=== PATIENT | female | born 1950 | race Caucasian/White ===

== ENCOUNTER 2017-11-10 20:26 | Emergency (ER) | payer BC ==
[2017-11-10] MEDS ORDERED: Morphine 2 MG/ML Syringe IVPUSH ONE (22:01)
[2017-11-10] MEDS ORDERED: Sodium Chloride 0.9% 10 ML Syringe FLUSH PRN (22:01)
[2017-11-10] MEDS ORDERED: Sodium Chloride 0.9% 2.5 ML Syringe FLUSH PRN (22:01)
[2017-11-10] MEDS ORDERED: Sodium Chloride 0.9% 1,000 ML IV ONE (22:01)
[2017-11-10] MEDS ORDERED: Ondansetron 4 MG/2 ML SDV IVPUSH ONE (22:01)
--- NOTE | 2017-11-10 22:04 | EDM.PDOC ---
ED HPI GENERAL MEDICAL PROBLEM - General Chief Complaint: Abdominal Pain Stated Complaint: ABDOMINAL PAIN Time Seen by Provider: 11/10/17 21:44 - History of Present Illness INITIAL COMMENTS - FREE TEXT/NARRATIVE: HISTORY AND PHYSICAL: History of present illness: The patient is a 67-year-old female with a history of hypertension and non- insulin dependent diabetes and hypercholesterol and who has had a total hysterectomy but no other abdominal surgeries and presents with episodic right- sided abdominal pain that has been ongoing for the last 1 week. Patient says that she had some spasms of the pain since the beginning of the year, 10-11 days ago and she has had loose stools/diarrhea also since that time. She was placed on amoxicillin for a dental infection but she was placed on that after the abdominal pain and diarrhea started. She has not had any recent travel. She says the diarrhea is not copious but it is watery and it is not black or bloody. She has not been vomiting with the symptoms and has not had a fever or flank pain. She has no urinary complaints. She says that she eats food and about 30 minutes after she eats she gets the cramping which will intensify and then she will have the diarrhea. She says the pain got worse tonight even without eating and she is concerned. She is not taking anything over-the- counter specifically for the pain. She has no IBS or GI history Review of systems: As per history of present illness and below otherwise all systems reviewed and negative. Past medical history: As per history of present illness and as reviewed below otherwise noncontributory. Surgical history: As per history of present illness and as reviewed below otherwise noncontributory. Social history: No reported history of drug or alcohol abuse. Family history: As per history of present illness and as reviewed below otherwise noncontributory. Physical exam: Gen.: Well-developed well-nourished female who is mildly overweight and nontoxic HEENT: Atraumatic, normocephalic, negative for conjunctival pallor or scleral icterus, mucous membranes moist, throat clear, neck supple, nontender, trachea midline. Lungs: Clear to auscultation, breath sounds equal bilaterally, chest nontender. Heart: S1S2, regular, negative for clicks, rubs, or JVD. Abdomen: Soft, nondistended, mildly tender in the right lower and right mid abdomen on deep palpation but there is no rebound guarding. There is tympany on percussion of the right side of the abdomen bowel sounds are normoactive. Negative for masses or hepatosplenomegaly. Negative for costovertebral tenderness. Pelvis: Stable nontender. Genitourinary: Deferred. Rectal: Deferred. Extremities: Atraumatic, negative for cords or calf pain. Neurovascular unremarkable. Neuro: Awake, alert, oriented. Cranial nerves II through XII unremarkable. Cerebellum unremarkable. Motor and sensory unremarkable throughout. Exam nonfocal. Diagnostics: CBC CMP amylase lipase UA, urine culture if indicated, CT scan of the abdomen and pelvis Therapeutics: IV, IV fluids, morphine Zofran and Bentyl I discussed with the patient and at bedside all testing results including the CAT scan. At this point there is no evident explanation for the patient's discomfort and diarrhea. Since she has been here she has not produced a stool sample but we will give her equipment to collect a stool at home and to bring it to outpatient lab and I will write a prescription for studies to send results to her provider in the clinic Dr. Brunner. I will give her Bentyl from [employer] Impression: Abdominal pain and diarrhea Definitive disposition and diagnosis as appropriate pending reevaluation and review of above. Abdomen Pain Score (Numeric/FACES): 6 - Related Data Allergies Allergy/AdvReac Type Severity Reaction Status Date / Time codeine Allergy Cannot Verified 11/10/17 21:[address] CONTRAST DYE Allergy Difficulty Uncoded 11/10/17 21:39 Breathing Home Meds: Home Meds Aspirin [Stephen Chewable Aspirin] 81 mg PO DAILY 04/23/14 [History] Levothyroxine 1 tab PO DAILY 04/23/14 [History] Losartan [Cozaar] 1 tab PO DAILY 04/23/14 [History] atorvaSTATin [Lipitor] 1 tab PO BEDTIME 04/23/14 [History] metFORMIN [Glucophage XR] 500 mg PO BIDM 04/23/14 [History] Empagliflozin/Linagliptin [Glyxambi 10 mg-5 mg Tablet] 1 tab PO DAILY 09/20/15 [ History] Past Medical History HEENT History: Reports: None Cardiovascular History: Reports: High Cholesterol, Hypertension Respiratory History: Reports: None Gastrointestinal History: Reports: None Genitourinary History: Reports: None [employer] History: Reports: None Musculoskeletal History: Reports: None Neurological History: Reports: None Psychiatric History: Reports: None Endocrine/Metabolic History: Reports: Diabetes, Type II Hematologic History: Reports: None Immunologic History: Reports: None Oncologic (Cancer) History: Reports: None Dermatologic History: Reports: None - Infectious Disease History Infectious Disease History: Reports: Chicken Pox, Measles, Mumps - Past Surgical History Head Surgeries/Procedures: Reports: None HEENT Surgical History: Reports: None Social & Family History - Family History Family Medical History: Noncontributory - Tobacco Use Smoking Status *Q: Never Smoker - Caffeine Use Caffeine Use: Reports: Soda - Alcohol Use Number of Drinks Per Day: 0 - Recreational Drug Use Recreational Drug Use: No Drug Use in Last 12 Months: No ED ROS GENERAL - Review of Systems Review Of Systems: ROS reveals no pertinent complaints other than HPI. ED EXAM, GENERAL - Physical Exam Exam: See Below (see dictation) Course - Vital Signs Last Recorded V/S: Last Vital Signs Temp 36.8 C 11/10/17 21:41 Pulse 89 11/10/17 21:41 Resp 18 11/10/17 22:37 BP 133/71 11/10/17 22:37 Pulse Ox 97 11/10/17 21:41 - Orders/Labs/Meds Orders: Active Orders 24 hr Category Date Time Status Communication Order [RC] STAT Care 11/10/17 22:04 Active Communication Order [RC] STAT Care 11/11/17 00:10 Ordered Abdomen Pelvis w Cont [CT] Stat Exams 11/10/17 22:01 Stop Req Abdomen Pelvis wo Cont [CT] Stat Exams 11/10/17 23:17 Taken Sodium Chloride 0.9% [Saline Flush] Med 11/10/17 22:01 Active 10 ml FLUSH ASDIRECTED PRN Sodium Chloride 0.9% [Saline Flush] Med 11/10/17 22:01 Active 2.5 ml FLUSH ASDIRECTED PRN Saline Lock Insert [OM.PC] Stat Oth 11/10/17 22:00 Ordered Medication Orders Sodium Chloride (Saline Flush) 10 ml FLUSH ASDIRECTED PRN PRN Reason: Keep Vein Open Sodium Chloride (Saline Flush) 2.5 ml FLUSH ASDIRECTED PRN PRN Reason: Keep Vein Open Labs: Laboratory Tests 11/10/17 11/10/17 11/10/17 Range/Units 22:20 22:20 22:30 WBC 6.44 (4.0-11.0) K/uL RBC 5.27 (4.30-5.90) M/uL Hgb 16.0 (12.0-16.0) g/dL Hct 46.1 H (36.0-46.0) % MCV 87.5 (80.0-98.0) fL MCH 30.4 (27.0-32.0) pg MCHC 34.7 (31.0-37.0) g/dL RDW Std Deviation 42.5 (28.0-62.0) fl RDW Coeff of Masoud 13 (11.0-15.0) % Plt Count 310 (150-400) K/uL MPV 9.30 (7.40-12.00) fL Neut % (Auto) 68.3 (48.0-80.0) % Lymph % (Auto) 20.8 (16.0-40.0) % Banner % (Auto) 9.6 (0.0-15.0) % Eos % (Auto) 1.1 (0.0-7.0) % Baso % (Auto) 0.2 (0.0-1.5) % Neut # (Auto) 4.4 (1.4-5.7) K/uL Lymph # (Auto) 1.3 (0.6-2.4) K/uL Banner # (Auto) 0.6 (0.0-0.8) K/uL Eos # (Auto) 0.1 (0.0-0.7) K/uL Baso # (Auto) 0.0 (0.0-0.1) K/uL Nucleated RBC % 0.0 /100WBC Nucleated RBCs # 0 K/uL Sodium 139 (136-146) mmol/L Potassium 4.0 (3.5-5.1) mmol/L Chloride 106 (98-110) mmol/L Carbon Dioxide 19 L (21-31) mmol/L BUN 19 (6.0-23.0) mg/dL Creatinine 0.8 (0.6-1.5) mg/dL Est Cr Clr Drug Dosing 55.45 mL/min Estimated GFR (MDRD) > 60.0 ml/min Glucose 124 H (60-110) mg/dL Calcium 9.5 (8.8-10.8) mg/dL Total Bilirubin 0.8 (0.1-1.5) mg/dL AST 19 (5-40) IU/L ALT 25 (8-54) IU/L Alkaline Phosphatase 76 (40-150) Total Protein 6.9 (6.0-8.0) g/dL Albumin 4.1 (3.4-4.8) g/dL Globulin 2.8 (2.0-3.5) g/dL Albumin/Globulin Ratio 1.5 (1.3-2.8) Amylase 57 (10-90) U/L Lipase 60 (7-80) U/L Urine Color YELLOW Urine Appearance CLEAR Urine pH 5.5 (5.0-8.0) Ur Specific [place] 1.025 (1.001-1.035) Urine Protein NEGATIVE (NEGATIVE) mg/dL Urine Glucose (UA) >=1000 (NEGATIVE) mg/dL Urine Ketones NEGATIVE (NEGATIVE) mg/dL Urine Occult Blood NEGATIVE (NEGATIVE) Urine Nitrite NEGATIVE (NEGATIVE) Urine Bilirubin NEGATIVE (NEGATIVE) Urine Urobilinogen 0.2 (<2.0) EU/dL Ur Leukocyte Esterase NEGATIVE (NEGATIVE) Urine RBC 0-2 (0-2/HPF) Urine WBC 0-2 (0-5/HPF) Ur Epithelial Cells OCCASIONAL (NONE-FEW) Urine Bacteria FEW (NEGATIVE) Meds: Medications Generic Name Dose Route Start Last Admin Trade Name Hayes PRN Reason Stop Dose Admin Sodium Chloride 10 ml 11/10/17 22:01 Saline Flush FLUSH ASDIRECTED PRN Keep Vein Open Sodium Chloride 2.5 ml 11/10/17 22:01 Saline Flush FLUSH ASDIRECTED PRN Keep Vein Open Discontinued Medications Generic Name Dose Route Start Last Admin Trade Name Freq PRN Reason Stop Dose Admin Dicyclomine HCl 20 mg 11/11/17 00:09 Bentyl PO 11/11/17 00:10 ONETIME ONE Sodium Chloride 1,000 mls @ 999 mls/hr 11/10/17 22:01 11/10/17 22:31 Normal Saline IV 11/10/17 23:01 999 mls/hr STAT ONE Administration Morphine Sulfate 4 mg 11/10/17 22:01 11/10/17 22:32 Morphine IVPUSH 11/10/17 22:02 4 mg ONETIME ONE Administration Ondansetron HCl 4 mg 11/10/17 22:01 11/10/17 22:31 Zofran IVPUSH 11/10/17 22:02 4 mg ONETIME ONE Administration Departure - Departure Time of Disposition: 00:11 Disposition: Home, Self-Care 01 Condition: Good Clinical Impression: Abdominal pain Qualifiers: Abdominal location: right lower quadrant Qualified Code(s): R10.31 - Right lower quadrant pain Diarrhea Qualifiers: Diarrhea type: unspecified type Qualified Code(s): R19.7 - Diarrhea, unspecified - Discharge Information Referrals: hTa Brunner MD [Primary Care Provider] - Forms: ED Department Discharge Additional Instructions: The following information is given to patients seen in the emergency department who are being discharged to home. This information is to outline your options for follow-up care. We provide all patients seen in our emergency department with a follow-up referral. The need for follow-up, as well as the timing and circumstances, are variable depending upon the specifics of your emergency department visit. If you don't have a primary care physician on staff, we will provide you with a referral. We always advise you to contact your personal physician following an emergency department visit to inform them of the circumstance of the visit and for follow-up with them and/or the need for any referrals to a consulting specialist. The emergency department will also refer you to a specialist when appropriate. This referral assures that you have the opportunity for followup care with a specialist. All of these measure are taken in an effort to provide you with optimal care, which includes your followup. Under all circumstances we always encourage you to contact your private physician who remains a resource for coordinating your care. When calling for followup care, please make the office aware that this follow-up is from your recent emergency room visit. If for any reason you are refused follow-up, please contact the [facility] emergency department at and ask to speak to the emergency department charge nurse. [facility] Primary care- Internal Medicine and Family [address] [address] Call your provider in the next few days for follow-up appointment and please collect a stool sample using the tools you have been given and bring it back when you can for outpatient study. Please push hydration rest and start journaling your food intake and your tools to further assist her provider on further care. Use Bentyl you have been given [facility] [employer] Meds for cramping and pain. - My Orders Last 24 Hours: My Active Orders 11/10/17 22:00 Saline Lock Insert [OM.PC] Stat 11/10/17 22:01 Abdomen Pelvis w Cont [CT] Stat Sodium Chloride 0.9% [Saline Flush] 10 ml FLUSH ASDIRECTED PRN Sodium Chloride 0.9% [Saline Flush] 2.5 ml FLUSH ASDIRECTED PRN 11/10/17 22:04 Communication Order [RC] STAT 11/10/17 23:17 Abdomen Pelvis wo Cont [CT] Stat 11/11/17 00:10 Communication Order [RC] STAT - Assessment/Plan Last 24 Hours: My Active Orders 11/10/17 22:00 Saline Lock Insert [OM.PC] Stat 11/10/17 22:01 Abdomen Pelvis w Cont [CT] Stat Sodium Chloride 0.9% [Saline Flush] 10 ml FLUSH ASDIRECTED PRN Sodium Chloride 0.9% [Saline Flush] 2.5 ml FLUSH ASDIRECTED PRN 11/10/17 22:04 Communication Order [RC] STAT 11/10/17 23:17 Abdomen Pelvis wo Cont [CT] Stat 11/11/17 00:10 Communication Order [RC] STAT
[2017-11-10 22:47] LABS: CHLORIDE,CL 106 mmol/L (98-110); SODIUM,NA 139 mmol/L (136-146)
[2017-11-11] MEDS ORDERED: Dicyclomine 10 MG Cap PO ONE (00:09)
[2017-11-11 00:17] VITALS: BP 110/72
--- NOTE | 2017-11-12 18:44 | CT ---
EXAM DATE: 11/10/17 PATIENT'S AGE: 67 Patient: KYLAH LUIS Facility: [place], [place] Site . Site : 1950 Study: CT Abdomen/Pelvis [id number]/[id number] 11:39:34 PM Ordering Physician: Valentin Whittington Final Report: TECHNIQUE: Noncontrast CT abdomen and pelvis. INDICATION: Abdominal pain. Comparison: 07/27/[address] FINDINGS: Liver appears fatty. Otherwise the liver, spleen, pancreas, kidneys and adrenal glands appear normal. No bowel obstruction. Hysterectomy. No adenopathy, free air or free fluid. Gallbladder and biliary tree are unremarkable. Several tiny nodules in the lung bases are unchanged from prior exam and should be benign. IMPRESSION: No acute findings. Hepatic steatosis. Please note that all CT scans performed at this facility use dose modulation, iterative reconstruction, and/or weight based dosing when appropriate to reduce radiation dose to as low as reasonably achievable. Dictated by Winston Pickard MD @ 11/11/2017 12:04:35 AM Dictated by: Winston Pickard MD @ 11/11/2017 00:04:40 (Electronic Signature) Report Signed by Proxy. [facility]
== END 2017-11-11 00:30 | disposition home or self-care (01) ==
LOC: MW.ED 20:26
DX: R10.31 Right lower quadrant pain (principal); R19.7 Diarrhea, unspecified; I10 Essential (primary) hypertension; E78.00 Pure hypercholesterolemia, unspecified; E11.9 Type 2 diabetes mellitus without complications; Z79.84 Long term (current) use of oral hypoglycemic drugs; Z79.82 Long term (current) use of aspirin; Z79.899 Other long term (current) drug therapy; Z88.5 Allergy status to narcotic agent; Z91.041 Radiographic dye allergy status
CPT/HCPCS: 36415; 74176; 80053; 81001; 82150; 83690; 85025; 96361; 96374; 96375; 99284; A9270; J2270; J2405; J7040

== ENCOUNTER 2020-07-24 16:55 | Emergency (ER) | payer BC, OTHER ==
--- NOTE | 2020-07-24 17:10 | EDM.PDOC ---
ED HPI GENERAL MEDICAL PROBLEM - General Chief Complaint: Respiratory Problem Stated Complaint: positive covid Time Seen by Provider: 07/24/20 17:07 Source of Information: Reports: Patient History Limitations: Reports: No Limitations - History of Present Illness INITIAL COMMENTS - FREE TEXT/NARRATIVE: HISTORY AND PHYSICAL: History of present illness: Patient is a 70-year-old female who presents to the emergency room with complaints of right ear pain, cough, body aches and shortness of breath. She states approximately 8 days ago she tested positive for COVID-19, her also was positive for COVID-19. She is concerned she may have a "lung infection" as her coughing has gotten worse. She voices concern as her who was asymptomatic had received antibiotics and steroids and she has not had any prescriptions for her diagnoses. Patient denies any fever, chills, headache, change in vision, syncope or near syncope. Denies any chest pain, back pain, abdominal pain, nausea, vomiting, diarrhea, constipation or dysuria. Patient has been eating and drinking appropriately. Review of systems: As per history of present illness and below otherwise all systems reviewed and negative. Past medical history: As per history of present illness and as reviewed below otherwise noncontributory. Surgical history: As per history of present illness and as reviewed below otherwise noncontributory. Social history: See social history for further information Family history: As per history of present illness and as reviewed below otherwise noncontributory. Physical exam: General: Well developed and well nourished 70-year-old female. Alert and orientated x 3. Nontoxic in appearance and in no acute distress. Vital signs are stable and have been reviewed by me. Nursing notes were reviewed. HEENT: Atraumatic, normocephalic, pupils equal and reactive bilaterally, negative for conjunctival pallor or scleral icterus, mucous membranes moist, TMs normal bilaterally, throat clear, neck supple, nontender, trachea midline. No drooling or trismus noted. No meningeal signs. No hot potato voice noted. Lungs: Fine expiratory wheezing noted to the left posterior base otherwise clear to auscultation, breath sounds equal bilaterally, chest nontender. Normal work of breathing, no accessory muscles used. Heart: S1S2, regular rate and rhythm without overt murmur Abdomen: Soft, nondistended, nontender. Skin: Intact, warm, dry. No lesions or rashes noted. Hematologic: No petechiae or purpra. Mucosa appropriate color and normal nail bed color and refill. Extremities: Atraumatic, moves all extremities per self without difficulty or deficits, negative for cords or calf pain. Lower extremities are warm to touch bilaterally. Neurovascular unremarkable. Neuro: Awake, alert, oriented. Cranial nerves II through XII unremarkable. Cerebellum unremarkable. Motor and sensory unremarkable throughout. Exam nonfocal. Psychiatric: Mood and affect are appropriate. Normal thought process. Answering questions appropriately. Notes: EKG shows a normal sinus rhythm with no acute findings. Lab work is unremarkable. X-ray shows a small density within the left midlung presumedly representing a small area of pneumonia. Given the patient's history of COVID 19 and her concerns today I will treat her with a Z-Ayo. I have spoken with the patient/caregiver and discussed today's findings, in addition to providing specific details for plan of care. Reassessment at the time of disposition demonstrates that the patient is in no acute distress. The patient has remained stable throughout the entire ED visit and is without objective evidence for acute process requiring urgent intervention or hospitalization. The patient is stable for discharge, counseling was provided and we discussed in great detail signs and symptoms that would prompt them to return to the Emergency Department. Medication, follow up and supportive care measures were reviewed and discussed. Voices understanding and is agreeable to plan of care. Denies any further questions or concerns at this time. Diagnostics: CBC, CMP, EKG, chest x-ray Therapeutics: K-Dur Prescription: Z-Ayo Impression: COVID-19 related pneumonia Hypokalemia Plan: 1. Your potassium is slightly low and your chest x-ray shows a small area which is suspicious for an early pneumonia. Your vital signs and oxygen saturation are well enough that you were able to monitor your symptoms at home. Continue to monitor for trouble breathing, new confusion or inability to arouse, bluish lips or face or any of the other symptoms we discussed -if this occurs please return to the emergency room. 2. Please self quarantine as you have been directed. 3. Take the medications as we prescribed as discussed. You can take NyQuil during the evening to help get a restful night sleep. 4. You may alternate Tylenol and ibuprofen as needed for pain and fever management. 5. The [place] COVID 19 Hotline phone number , They are open Sunday - Sunday 7am - 7pm. Follow up with your primary care provider for re-evaluation and re-testing after the 2 week quarantine and discuss when you should be seen. Definitive disposition and diagnosis as appropriate pending reevaluation and review of above. stomach/back/thighs Pain Score (Numeric/FACES): 5 - Related Data Allergies Allergy/AdvReac Type Severity Reaction Status Date / Time codeine Allergy Cannot Verified 07/24/20 17:[address] CONTRAST DYE Allergy Difficulty Uncoded 07/24/20 17:02 Breathing Home Meds: Home Meds Aspirin [Stephen Chewable Aspirin] 81 mg PO DAILY 04/23/14 [History] Levothyroxine 1 tab PO DAILY 04/23/14 [History] Losartan [Cozaar] 1 tab PO DAILY 04/23/14 [History] atorvaSTATin [Lipitor] 1 tab PO BEDTIME 04/23/14 [History] metFORMIN [Glucophage XR] 500 mg PO BIDM 04/23/14 [History] Empagliflozin/Linagliptin [Glyxambi 10 mg-5 mg Tablet] 1 tab PO DAILY 09/20/15 [History] Azithromycin [Zithromax] 1 dose PO DAILY 5 Days #6 tab 07/24/20 [Rx] Potassium Chloride 40 meq PO DAILY 5 Days #10 tab.er.prt 07/24/20 [Rx] Past Medical History HEENT History: Reports: None Cardiovascular History: Reports: High Cholesterol, Hypertension Respiratory History: Reports: None Gastrointestinal History: Reports: None Genitourinary History: Reports: None 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 Musculoskeletal History: Reports: None Neurological History: Reports: None Psychiatric History: Reports: None Endocrine/Metabolic History: Reports: Diabetes, Type II Hematologic History: Reports: None Immunologic History: Reports: None Oncologic (Cancer) History: Reports: None Dermatologic History: Reports: None - Infectious Disease History Infectious Disease History: Reports: Chicken Pox, Measles, Mumps - Past Surgical History Head Surgeries/Procedures: Reports: None HEENT Surgical History: Reports: None Social & Family History - Family History Family Medical History: Noncontributory - Tobacco Use Smoking Status *Q: Never Smoker - Caffeine Use Caffeine Use: Reports: None - Recreational Drug Use Recreational Drug Use: No ED ROS GENERAL - Review of Systems Review Of Systems: Comprehensive ROS is negative, except as noted in HPI. ED EXAM, GENERAL - Physical Exam Exam: See Below (See dictation) Course - Vital Signs Last Recorded V/S: Last Vital Signs Temp 97.8 F 07/24/20 17:02 Pulse 86 07/24/20 17:02 Resp 16 07/24/20 17:02 BP 117/72 07/24/20 17:02 Pulse Ox 95 07/24/20 17:02 - Orders/Labs/Meds Orders: Active Orders 24 hr Category Date Time Status EKG Documentation Completion [RC] STAT Care 07/24/20 17:16 Active Labs: Laboratory Tests 07/24/20 07/24/20 Range/Units 17:43 17:43 WBC 2.79 L (4.0-11.0) K/uL RBC 4.56 (4.30-5.90) M/uL Hgb 13.4 (12.0-16.0) g/dL Hct 40.3 (36.0-46.0) % MCV 88.4 (80.0-98.0) fL MCH 29.4 (27.0-32.0) pg MCHC 33.3 (31.0-37.0) g/dL RDW Std Deviation 42.5 (28.0-62.0) fl RDW Coeff of Masoud 13 (11.0-15.0) % Plt Count 203 (150-400) K/uL MPV 9.20 (7.40-12.00) fL Neut % (Auto) 47.0 L (48.0-80.0) % Lymph % (Auto) 40.5 H (16.0-40.0) % Burt % (Auto) 11.1 (0.0-15.0) % Eos % (Auto) 1.4 (0.0-7.0) % Baso % (Auto) 0.0 (0.0-1.5) % Neut # (Auto) 1.3 L (1.4-5.7) K/uL Lymph # (Auto) 1.1 (0.6-2.4) K/uL Burt # (Auto) 0.3 (0.0-0.8) K/uL Eos # (Auto) 0.0 (0.0-0.7) K/uL Baso # (Auto) 0.0 (0.0-0.1) K/uL Nucleated RBC % 0.0 /100WBC Nucleated RBCs # 0 K/uL Sodium 141 (136-145) mmol/L Potassium 3.0 L (3.5-5.1) mmol/L Chloride 105 (98-107) mmol/L Carbon Dioxide 25.7 (21.0-32.0) mmol/L BUN 14 (7.0-18.0) mg/dL Creatinine 0.8 (0.6-1.0) mg/dL Est Cr Clr Drug Dosing 55.68 mL/min Estimated GFR (MDRD) > 60.0 ml/min Glucose 155 H (74-106) mg/dL Calcium 8.0 L (8.5-10.1) mg/dL Total Bilirubin 0.4 (0.2-1.0) mg/dL AST 23 (15-37) IU/L ALT 47 (14-63) IU/L Alkaline Phosphatase 72 (46-116) U/L Total Protein 6.5 (6.4-8.2) g/dL Albumin 3.4 (3.4-5.0) g/dL Globulin 3.1 (2.6-4.0) g/dL Albumin/Globulin Ratio 1.1 (0.9-1.6) Meds: Medications Discontinued Medications Generic Name Dose Route Start Last Admin Trade Name Freq PRN Reason Stop Dose Admin Potassium Chloride 40 meq 07/24/20 18:29 07/24/20 18:45 Klor-Con M20 PO 07/24/20 18:30 40 meq ONETIME ONE Administration Departure - Departure Time of Disposition: 18:10 Disposition: Home, Self-Care 01 Clinical Impression: Pneumonia due to COVID-19 virus, Hypokalemia - Discharge Information Prescriptions: Potassium Chloride 40 meq PO DAILY 5 Days #10 tab.er.prt Azithromycin [Zithromax] 1 dose PO DAILY 5 Days #6 tab Instructions: COVID-19 Frequently Asked Questions Referrals: PCP,None [Primary Care Provider] - Forms: ED Department Discharge Additional Instructions: The following information is given to patients seen in the emergency department who are being discharged to home. This information is to outline your options for follow-up care. We provide all patients seen in our emergency department with a follow-up referral. The need for follow-up, as well as the timing and circumstances, are variable depending upon the specifics of your emergency department visit. If you don't have a primary care physician on staff, we will provide you with a referral. We always advise you to contact your personal physician following an emergency department visit to inform them of the circumstance of the visit and for follow-up with them and/or the need for any referrals to a consulting specialist. The emergency department will also refer you to a specialist when appropriate. This referral assures that you have the opportunity for follow-up care with a specialist. All of these measure are taken in an effort to provide you with optimal care, which includes your follow-up. Under all circumstances we always encourage you to contact your private physician who remains a resource for coordinating your care. When calling for follow-up care, please make the office aware that this follow-up is from your recent emergency room visit. If for any reason you are refused follow-up, please contact the [facility] Emergency Department at and asked to speak to the emergency department charge nurse. [facility] [address] [place] [address] [place] [address] Thank you for choosing the [facility] emergency department in [place] for your medical needs today. It was a pleasure caring for you. Today you were seen in the emergency department for COVID-19 symptoms. 1. Your potassium is slightly low and your chest x-ray shows a small area which is suspicious for an early pneumonia. Your vital signs and oxygen saturation are well enough that you were able to monitor your symptoms at home. Continue to monitor for trouble breathing, new confusion or inability to arouse, bluish lips or face or any of the other symptoms we discussed -if this occurs please return to the emergency room. 2. Please self quarantine as you have been directed. 3. Take the medications as we prescribed as discussed. You can take NyQuil during the evening to help get a restful night sleep. 4. You may alternate Tylenol and ibuprofen as needed for pain and fever management. 5. The [employer] Hotline phone number , They are open Sunday - Sunday 7am - 7pm. Follow up with your primary care provider for re-evaluation and re-testing after the 2 week quarantine and discuss when you should be seen. Sepsis Event Note (ED) - Evaluation Sepsis Screening Result: No Definite Risk - Focused Exam Vital Signs: Vital Signs Temp Pulse Resp BP Pulse Ox 07/24/20 17:02 97.8 F 86 16 117/72 95 - My Orders Last 24 Hours: My Active Orders 07/24/20 17:16 EKG Documentation Completion [RC] STAT - Assessment/Plan Last 24 Hours: My Active Orders 07/24/20 17:16 EKG Documentation Completion [RC] STAT
--- NOTE | 2020-07-24 17:40 | CR ---
Chest: Portable view of the chest was obtained. Comparison: No prior chest imaging is available. Heart size and mediastinum are normal. Small density is noted within left mid lung. Lungs otherwise are clear. Bony structures are grossly intact. Impression: 1. Small density within the left mid lung presumably representing small area of pneumonia. 2. No additional abnormality is seen on portable chest x-ray. Diagnostic code #3 This report was dictated in MDT
[2020-07-24 18:12] LABS: BLOOD UREA NITROGEN,BUN 14 mg/dL (7.0-18.0); CARBON DIOXIDE,CO2 25.7 mmol/L (21.0-32.0); CHLORIDE,CL 105 mmol/L (98-107); GLUCOSE RANDOM 155 mg/dL (74-106); SODIUM,NA 141 mmol/L (136-145)
[2020-07-24] MEDS ORDERED: Potassium Chloride 20 MEQ Tab.ER PO ONE (18:29)
[2020-07-24 19:00] VITALS: BP 121/68; PULSE 81
== END 2020-07-24 18:49 | disposition home or self-care (01) ==
LOC: MW.ED 16:55
DX: U07.1 COVID-19 (principal); J12.89 Other viral pneumonia; E87.6 Hypokalemia; E78.00 Pure hypercholesterolemia, unspecified; I10 Essential (primary) hypertension; E11.9 Type 2 diabetes mellitus without complications; Z88.5 Allergy status to narcotic agent; Z91.041 Radiographic dye allergy status; Z79.82 Long term (current) use of aspirin; Z79.84 Long term (current) use of oral hypoglycemic drugs; Z79.899 Other long term (current) drug therapy
CPT/HCPCS: 36415; 71045; 80053; 85025; 93005; 99285; A9270; 99283

== ENCOUNTER 2020-07-27 09:29 | Emergency (ER) | payer BC ==
[2020-07-27] MEDS ORDERED: Sodium Chloride 0.9% 1,000 ML IV ONE (10:14)
[2020-07-27] MEDS ORDERED: Sodium Chloride 0.9% 10 ML Syringe FLUSH PRN (10:14)
[2020-07-27] MEDS ORDERED: Acetaminophen 500 MG Tab PO ONE (10:14)
[2020-07-27] MEDS ORDERED: Sodium Chloride 0.9% 2.5 ML Syringe FLUSH PRN (10:14)
[2020-07-27] MEDS ORDERED: Ibuprofen 600 MG Tab PO ONE (10:16)
[2020-07-27] MEDS ORDERED: Cyclobenzaprine 10 MG Tab PO ONE (10:19)
--- NOTE | 2020-07-27 10:19 | EDM.PDOC ---
ED HPI GENERAL MEDICAL PROBLEM - General Chief Complaint: Back Pain or Injury Stated Complaint: UNKNOWN NURSE SPOKE WITH PATIENT Time Seen by Provider: 07/27/20 09:30 Source of Information: Reports: Patient History Limitations: Reports: No Limitations - History of Present Illness INITIAL COMMENTS - FREE TEXT/NARRATIVE: 70F presents with persistent CP and upper back pain likely related to recent COVID-19 diagnosis. Patient was diagnosed roughly 1 1/2-weeks ago with COVID-19. She has been on azithromycin which she completed and motrin/tylenol. She has been monitoring her pulse ox which is at lowest 92% but typically mid 90s. She has a CPAP for nighttime. She denies SOB or fever. She notes pain in her left anterior chest radiating to her back which is constant, not worsening, not getting better. No LE swelling/pain/redness. She is allergic to contrast dye and declines any CT imaging. Chest Pain Score (Numeric/FACES): 7 - Related Data Allergies Allergy/AdvReac Type Severity Reaction Status Date / Time codeine Allergy Cannot Verified 07/27/20 09:[address] CONTRAST DYE Allergy Difficulty Uncoded 07/27/20 09:37 Breathing Home Meds: Home Meds Aspirin [Stephen Chewable Aspirin] 81 mg PO DAILY 04/23/14 [History] Levothyroxine 1 tab PO DAILY 04/23/14 [History] Losartan [Cozaar] 1 tab PO DAILY 04/23/14 [History] atorvaSTATin [Lipitor] 1 tab PO BEDTIME 04/23/14 [History] metFORMIN [Glucophage XR] 500 mg PO BIDM 04/23/14 [History] Empagliflozin/Linagliptin [Glyxambi 10 mg-5 mg Tablet] 1 tab PO DAILY 09/20/15 [History] Azithromycin [Zithromax] 1 dose PO DAILY 5 Days #6 tab 07/24/20 [Rx] Potassium Chloride 40 meq PO DAILY 5 Days #10 tab.er.prt 07/24/20 [Rx] Ondansetron [Zofran ODT] 4 mg PO Q6H PRN #10 tab.dis 07/27/20 [Rx] Past Medical History HEENT History: Reports: None Cardiovascular History: Reports: High Cholesterol, Hypertension Respiratory History: Reports: None Gastrointestinal History: Reports: None Genitourinary History: Reports: None STITCHDOWN THREAD LASTER History: Reports: None Musculoskeletal History: Reports: None Neurological History: Reports: None Psychiatric History: Reports: None Endocrine/Metabolic History: Reports: Diabetes, Type II Hematologic History: Reports: None Immunologic History: Reports: None Oncologic (Cancer) History: Reports: None Dermatologic History: Reports: None - Infectious Disease History Infectious Disease History: Reports: None - Past Surgical History Head Surgeries/Procedures: Reports: None HEENT Surgical History: Reports: None Social & Family History - Family History Family Medical History: Noncontributory - Tobacco Use Smoking Status *Q: Never Smoker - Caffeine Use Caffeine Use: Reports: None - Recreational Drug Use Recreational Drug Use: No ED ROS GENERAL - Review of Systems Review Of Systems: Comprehensive ROS is negative, except as noted in HPI. ED EXAM, UPPER BACK/NECK PAIN - Physical Exam Exam: See Below Exam Limited By: No Limitations General Appearance: Alert, WD/WN, No Apparent Distress Ears Exam: Normal External Exam Nose Exam: Normal Inspection Throat/Mouth Exam: Normal Inspection, Normal Voice, No Airway Compromise Head Exam: Atraumatic, Normocephalic Neck Exam: Non-Tender Cardiovascular/Respiratory: Normal Breath Sounds, No Respiratory Distress, Tachycardia Extremities: Normal Inspection Neurologic: Alert, Normal Mood/Affect Psychiatric: Normal Affect, Normal Mood Skin Exam: Normal Color, Warm/Dry EKG INTERPRETATION EKG Date: 07/27/20 Time: 10:38 Rhythm: NSR Rate (Beats/Min): 106 [place]: Normal P-Wave: Present QRS: Normal ST-T: Normal QT: Prolonged CA/PQ Interval: 160 EKG Interpretation Comments: no evidence of right heart strain or ischemia Course - Vital Signs Last Recorded V/S: Last Vital Signs Temp 97.4 F 07/27/20 09:35 Pulse 94 07/27/20 11:37 Resp 16 07/27/20 09:35 BP 115/59 L 07/27/20 11:37 Pulse Ox 92 L 07/27/20 11:37 - Orders/Labs/Meds Orders: Active Orders 24 hr Category Date Time Status Cardiac Monitoring [RC] . DIRECTED Care 07/27/20 10:14 Active EKG Documentation Completion [RC] STAT Care 07/27/20 10:14 Active Pulse Oximetry [RC] ASDIRECTED Care 07/27/20 10:14 Active PROCALCITONIN [REF] Stat Lab 07/27/20 10:45 Received Sodium Chloride 0.9% [Saline Flush] Med 07/27/20 10:14 Active 10 ml FLUSH ASDIRECTED PRN Sodium Chloride 0.9% [Saline Flush] Med 07/27/20 10:14 Active 2.5 ml FLUSH ASDIRECTED PRN Saline Lock Insert [OM.PC] Stat Oth 07/27/20 10:14 Ordered Medication Orders Sodium Chloride (Saline Flush) 10 ml FLUSH ASDIRECTED PRN PRN Reason: Keep Vein Open Last Admin: 07/27/20 10:47 Dose: 10 ml Documented by: DELFINO Sodium Chloride (Saline Flush) 2.5 ml FLUSH ASDIRECTED PRN PRN Reason: Keep Vein Open Last Admin: 07/27/20 10:47 Dose: 2.5 ml Documented by: DELFINO Labs: Laboratory Tests 07/27/20 07/27/20 07/27/20 Range/Units 10:45 10:45 10:45 WBC 5.82 (4.0-11.0) K/uL RBC 5.43 (4.30-5.90) M/uL Hgb 16.0 (12.0-16.0) g/dL Hct 47.7 H (36.0-46.0) % MCV 87.8 (80.0-98.0) fL MCH 29.5 (27.0-32.0) pg MCHC 33.5 (31.0-37.0) g/dL RDW Std Deviation 43.9 (28.0-62.0) fl RDW Coeff of Masoud 14 (11.0-15.0) % Plt Count 266 (150-400) K/uL MPV 9.40 (7.40-12.00) fL Neut % (Auto) 63.4 (48.0-80.0) % Lymph % (Auto) 28.5 (16.0-40.0) % [place] % (Auto) 7.7 (0.0-15.0) % Eos % (Auto) 0.2 (0.0-7.0) % Baso % (Auto) 0.2 (0.0-1.5) % Neut # (Auto) 3.7 (1.4-5.7) K/uL Lymph # (Auto) 1.7 (0.6-2.4) K/uL [place] # (Auto) 0.5 (0.0-0.8) K/uL Eos # (Auto) 0.0 (0.0-0.7) K/uL Baso # (Auto) 0.0 (0.0-0.1) K/uL Nucleated RBC % 0.0 /100WBC Nucleated RBCs # 0 K/uL Lactate 1.5 (0.20-2.00) mmol/L Sodium 138 (136-145) mmol/L Potassium 4.0 (3.5-5.1) mmol/L Chloride 101 (98-107) mmol/L Carbon Dioxide 17.8 L (21.0-32.0) mmol/L BUN 16 (7.0-18.0) mg/dL Creatinine 0.8 (0.6-1.0) mg/dL Est Cr Clr Drug Dosing 55.68 mL/min Estimated GFR (MDRD) > 60.0 ml/min Glucose 136 H (74-106) mg/dL Calcium 9.2 (8.5-10.1) mg/dL Magnesium 2.1 (1.8-2.4) mg/dL Total Bilirubin 0.8 (0.2-1.0) mg/dL AST 26 (15-37) IU/L ALT 42 (14-63) IU/L Alkaline Phosphatase 87 (46-116) U/L Troponin I < 0.050 (0.000-0.056) ng/mL C-Reactive Protein 1.90 H (0.00-0.90) mg/dL Total Protein 8.0 (6.4-8.2) g/dL Albumin 4.1 (3.4-5.0) g/dL Globulin 3.9 (2.6-4.0) g/dL Albumin/Globulin Ratio 1.1 (0.9-1.6) Meds: Medications Generic Name Dose Route Start Last Admin Trade Name Freq PRN Reason Stop Dose Admin Sodium Chloride 10 ml 07/27/20 10:14 07/27/20 10:47 Saline Flush FLUSH 10 ml ASDIRECTED PRN Administration Keep Vein Open Sodium Chloride 2.5 ml 07/27/20 10:14 07/27/20 10:47 Saline Flush FLUSH 2.5 ml ASDIRECTED PRN Administration Keep Vein Open Discontinued Medications Generic Name Dose Route Start Last Admin Trade Name [place] PRN Reason Stop Dose Admin Acetaminophen 1,000 mg 07/27/20 10:14 07/27/20 10:39 Tylenol Extra Strength PO 07/27/20 10:15 1,000 mg ONETIME ONE Administration Cyclobenzaprine HCl 10 mg 07/27/20 10:19 07/27/20 10:39 Flexeril PO 07/27/20 10:20 10 mg ONETIME ONE Administration Sodium Chloride 1,000 mls @ 999 mls/hr 07/27/20 10:14 07/27/20 10:46 Normal Saline IV 07/27/20 11:14 999 mls/hr .Bolus ONE Administration Ibuprofen 600 mg 07/27/20 10:16 07/27/20 10:39 Motrin PO 07/27/20 10:17 600 mg ONETIME ONE Administration Ketorolac Tromethamine 30 mg 07/27/20 10:50 07/27/20 10:57 Toradol IVPUSH 07/27/20 10:51 30 mg ONETIME ONE Administration Ondansetron HCl 4 mg 07/27/20 10:50 07/27/20 10:57 Zofran IVPUSH 07/27/20 10:51 4 mg ONETIME ONE Administration - Re-Assessments/Exams Free Text/Narrative Re-Assessment/Exam: 07/27/20 10:19 Will get basic labs and CXR; will give IVFB and tylenol/motrin. Will f/u results and dispo accordingly. Explained to patient that we cannot r/o PE without CTA scan of chest. As she denies SOB, has normal O2 saturations, and symptoms are easily explained by other less serious pathology, it is reasonable through shared decision making to defer CT imaging w/ patient's h/o allergic reaction to IV contrast dye. I explained that if she does develop SOB to consider pulmonary embolism and that if necessary we can give her treatment for allergic reaction prior to giving contrast dye . 07/27/20 10:51 patient vomited all PO meds. Will give zofran 4mg (QT is very mildly prolonged on EKG so will avoid repeat dosing), will give toradol 30mg IV 07/27/20 12:11 Labs unremarkable. Will d/c with instructions to monitor SpO2 and will write for zofran for symptomatic relief of N/V. Departure - Departure Time of Disposition: 12:12 Disposition: Home, Self-Care 01 Condition: Good Clinical Impression: COVID-19 - Discharge Information Prescriptions: Ondansetron [Zofran ODT] 4 mg PO Q6H PRN #10 tab.dis PRN Reason: Vomiting Instructions: COVID-19 Frequently Asked Questions Referrals: PCP,Unobtain [Primary Care Provider] - Forms: ED Department Discharge Additional Instructions: The following information is given to patients seen in the emergency department who are being discharged to home. This information is to outline your options for follow-up care. We provide all patients seen in our emergency department with a follow-up referral. The need for follow-up, as well as the timing and circumstances, are variable depending upon the specifics of your emergency department visit. If you don't have a primary care physician on staff, we will provide you with a referral. We always advise you to contact your personal physician following an emergency department visit to inform them of the circumstance of the visit and for follow-up with them and/or the need for any referrals to a consulting specialist. The emergency department will also refer you to a specialist when appropriate. This referral assures that you have the opportunity for follow-up care with a specialist. All of these measure are taken in an effort to provide you with optimal care, which includes your follow-up. Under all circumstances we always encourage you to contact your private physician who remains a resource for coordinating your care. When calling for follow-up care, please make the office aware that this follow-up is from your recent emergency room visit. If for any reason you are refused follow-up, please contact the [facility] Emergency Department at and asked to speak to the emergency department charge nurse. Please follow up with your primary care physician. If you do not have a primary care physician, see below: [facility] [address] [place] [address] [id number] [facility] [address] [place] [id number] Sepsis Event Note (ED) - Evaluation Sepsis Screening Result: No Definite Risk - Focused Exam Vital Signs: Vital Signs Temp Pulse Resp BP Pulse Ox 07/27/20 11:37 94 115/59 L 92 L 07/27/20 11:07 96 121/67 92 L 07/27/20 10:37 114 H 119/67 94 L 07/27/20 09:35 97.4 F 111 H 16 125/73 95 - My Orders Last 24 Hours: My Active Orders 07/27/20 10:14 Cardiac Monitoring [RC] . DIRECTED EKG Documentation Completion [RC] STAT Pulse Oximetry [RC] ASDIRECTED Sodium Chloride 0.9% [Saline Flush] 10 ml FLUSH ASDIRECTED PRN Sodium Chloride 0.9% [Saline Flush] 2.5 ml FLUSH ASDIRECTED PRN Saline Lock Insert [OM.PC] Stat 07/27/20 10:45 PROCALCITONIN [REF] Stat - Assessment/Plan Last 24 Hours: My Active Orders 07/27/20 10:14 Cardiac Monitoring [RC] . DIRECTED EKG Documentation Completion [RC] STAT Pulse Oximetry [RC] ASDIRECTED Sodium Chloride 0.9% [Saline Flush] 10 ml FLUSH ASDIRECTED PRN Sodium Chloride 0.9% [Saline Flush] 2.5 ml FLUSH ASDIRECTED PRN Saline Lock Insert [OM.PC] Stat 07/27/20 10:45 PROCALCITONIN [REF] Stat
[2020-07-27] MEDS ORDERED: Ondansetron 4 MG/2 ML SDV IVPUSH ONE (10:50)
[2020-07-27] MEDS ORDERED: Ketorolac 30 MG/ML SDV IVPUSH ONE (10:50)
[2020-07-27 11:22] LABS: BLOOD UREA NITROGEN,BUN 16 mg/dL (7.0-18.0); CARBON DIOXIDE,CO2 17.8 mmol/L (21.0-32.0); CHLORIDE,CL 101 mmol/L (98-107); GLUCOSE RANDOM 136 mg/dL (74-106); SODIUM,NA 138 mmol/L (136-145)
--- NOTE | 2020-07-27 11:22 | CR ---
Chest: Portable view of the chest was obtained. Comparison: Prior chest x-ray of 07/24/20. Heart size and mediastinum are normal. Slight parenchymal density remains within the left midlung. Lungs otherwise are clear. Bony structures are grossly intact. Impression: 1. Minimal density remains within the left midlung from prior chest x-ray. 2. Nothing acute is otherwise seen. Diagnostic code #3 This report was dictated in MDT
[2020-07-27 12:41] VITALS: BP 114/69; PULSE 97
== END 2020-07-27 12:30 | disposition home or self-care (01) ==
LOC: MW.ED 09:29
DX: U07.1 COVID-19 (principal); R00.0 Tachycardia, unspecified; I10 Essential (primary) hypertension; E78.00 Pure hypercholesterolemia, unspecified; E11.9 Type 2 diabetes mellitus without complications; Z88.5 Allergy status to narcotic agent; Z91.041 Radiographic dye allergy status; Z79.82 Long term (current) use of aspirin; Z79.84 Long term (current) use of oral hypoglycemic drugs; Z79.899 Other long term (current) drug therapy
CPT/HCPCS: 71045; 71045-26; 80053; 83605; 83735; 84145; 84484; 85025; 86140; 93005; 96361; 96374; 96375; 99285-25; A9270-GY; J1885; J2405; J7030

== ENCOUNTER 2020-07-28 17:27 | Inpatient (IN) | payer MEDICARE, BC, OTHER ==
[2020-07-28] MEDS ORDERED: Sodium Chloride 0.9% 10 ML Syringe FLUSH PRN (17:32)
[2020-07-28] MEDS ORDERED: Hydrocortisone Sodium Succinate 100 MG/2 ML SDV IVPUSH ONE (17:33)
[2020-07-28] MEDS ORDERED: Famotidine 20 MG/2 ML SDV IVPUSH ONE (17:34)
[2020-07-28] MEDS ORDERED: diphenhydrAMINE 50 MG/ML SDV IVPUSH ONE (17:34)
--- NOTE | 2020-07-28 17:34 | EDM.PDOC ---
<Sandeep Calles - Last Filed: 07/28/20 20:54> ED HPI GENERAL MEDICAL PROBLEM - General Stated Complaint: COVID POSITIVE OXGEN LEVELS CONCERN Time Seen by Provider: 07/28/20 17:31 - Related Data Allergies Allergy/AdvReac Type Severity Reaction Status Date / Time codeine Allergy Cannot Verified 07/28/20 22:[address] CONTRAST DYE Allergy Difficulty Uncoded 07/29/20 07:01 Breathing Home Meds: Home Meds Aspirin [Stephen Chewable Aspirin] 81 mg PO DAILY 04/23/14 [History] Levothyroxine 1 tab PO DAILY 04/23/14 [History] Losartan [Cozaar] 1 tab PO DAILY 04/23/14 [History] atorvaSTATin [Lipitor] 1 tab PO BEDTIME 04/23/14 [History] metFORMIN [Glucophage XR] 500 mg PO BIDM 04/23/14 [History] Empagliflozin/Linagliptin [Glyxambi 10 mg-5 mg Tablet] 1 tab PO DAILY 09/20/15 [History] Azithromycin [Zithromax] 1 dose PO DAILY 5 Days #6 tab 07/24/20 [Rx] Potassium Chloride 40 meq PO DAILY 5 Days #10 tab.er.prt 07/24/20 [Rx] Ondansetron [Zofran ODT] 4 mg PO Q6H PRN #10 tab.dis 07/27/20 [Rx] Course - Re-Assessments/Exams Free Text/Narrative Re-Assessment/Exam: 07/28/20 20:54 I accepted care at turnover of this patient [address] pulmonary angiogram. Consistent with COVID-19 pneumonia bilaterally. Patient does have an oxygen requirement. Her d-dimer is significantly elevated and is greater than 5 times a high end of normal therefore I will start her on anticoagulation with heparin as per current recommendations. There is no evidence of PE. Patient will require admission to the hospital. Critical Care Note: The patient presented in critical status due to COVID-19 pneumonia requiring heparinization and antibiotic/antiviral treatment The patient required rapid exam, decision making, and frequent re-evaluations during their time in the Emergency Department. Total Critical Care time exclusive of all other billable procedure time provided by myself 45 minutes My diagnostic impression 1. Bilateral COVID pneumonia 2. Acute hypoxic respiratory failure secondary to: Pneumonia 3. D-dimer significantly elevated requiring empiric heparinization to prevent thromboembolic disease and COVID-19 Departure - Departure Time of Disposition: 20:56 Disposition: Admitted As Inpatient 68 Clinical Impression: COVID-19 - Discharge Information *PRESCRIPTION DRUG MONITORING PROGRAM REVIEWED*: Not Applicable *COPY OF PRESCRIPTION DRUG MONITORING REPORT IN PATIENT AR: Not Applicable <Jose Miguel Khalil - Last Filed: 07/29/20 07:01> ED HPI GENERAL MEDICAL PROBLEM - General Source of Information: Reports: Patient History Limitations: Reports: No Limitations - History of Present Illness INITIAL COMMENTS - FREE TEXT/NARRATIVE: 70F presents for COVID-19 worsening symptoms. Patient was seen here multiple times for similar. Was seen yesterday and had negative workup, but she did not get a CT to r/o PE as she is allergic to contrast dye. At that time she had noted oxygen saturation of 92%. This morning her O2 sats dropped to low 80s and her symptoms have been worsening. She talked with her PMD who also called the ER and spoke with me, and we all agree she should be pretreated for allergy and have the CTA to r/o PE vs COVID pneumonia. 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 Musculoskeletal History: Reports: None Neurological History: Reports: None Psychiatric History: Reports: None Endocrine/Metabolic History: Reports: Diabetes, Type II Hematologic History: Reports: None Immunologic History: Reports: None Oncologic (Cancer) History: Reports: None Dermatologic History: Reports: None - Infectious Disease History Infectious Disease History: Reports: None - Past Surgical History Head Surgeries/Procedures: Reports: None HEENT Surgical History: Reports: None Social & Family History - Family History Family Medical History: Noncontributory - Caffeine Use Caffeine Use: Reports: None ED ROS GENERAL - Review of Systems Review Of Systems: Comprehensive ROS is negative, except as noted in HPI. ED EXAM, GENERAL - Physical Exam Exam: See Below Exam Limited By: No Limitations General Appearance: Alert, WD/WN, No Apparent Distress Ears: Normal External Exam Nose: Normal Inspection Throat/Mouth: Normal Inspection, Normal Voice, No Airway Compromise Head: Atraumatic, Normocephalic Neck: Normal Inspection Respiratory/Chest: No Respiratory Distress, Lungs Clear, Normal Breath Sounds, No Accessory Muscle Use Cardiovascular: Normal Peripheral Pulses, Tachycardia Extremities: Normal Inspection Neurological: Alert Psychiatric: Normal Affect, Normal Mood Skin Exam: Warm, Dry, Intact, Normal Color Course - Vital Signs Last Recorded V/S: Last Vital Signs Temp 97.8 F 07/29/20 04:24 Pulse 97 07/29/20 04:24 Resp 18 07/29/20 04:24 BP 127/61 07/29/20 04:24 Pulse Ox 96 07/29/20 04:24 - Orders/Labs/Meds Orders: Active Orders 24 hr Category Date Time Status Patient Status [ADT] Routine ADT 07/28/20 21:19 Active Pulse Oximetry [RC] ASDIRECTED Care 07/28/20 17:32 Active Heparin Sod,Pork In 0.45% Nacl [Heparin-1/2Ns 25,000 Med 07/28/20 20:53 Active Units/500] 25,000 unit in 500 ml IV TITRATE Sodium Chloride 0.9% [Saline Flush] Med 07/28/20 17:32 Active 10 ml FLUSH ASDIRECTED PRN Sodium Chloride 0.9% [Saline Flush] Med 07/28/20 17:32 Active 2.5 ml FLUSH ASDIRECTED PRN Isolation [COMM] Stat Oth 07/28/20 20:42 Active Saline Lock Insert [OM.PC] Stat Oth 07/28/20 17:32 Ordered Medication Orders Acetaminophen (Tylenol) 650 mg PO Q4H PRN PRN Reason: Pain (Mild 1-3)/fever Last Admin: 07/29/20 05:03 Dose: 650 mg Documented by: PAGE Atorvastatin Calcium (Lipitor) 20 mg PO BEDTIME DORIS Dexamethasone (Dexamethasone) 6 mg PO DAILY DORIS Heparin Sodium/Sodium Chloride (Heparin-1/2ns 25,000 Units/500) 25,000 unit in 500 mls @ 26.454 mls/hr IV TITRATE DORIS; Protocol Last Titration: 07/29/20 06:09 Dose: 15 units/kg/hr, 22.045 mls/hr Documented by: PAGE Cosigned by: RUSSELL Titration: 07/29/20 04:52 Dose: 0 units/kg/hr, 0 mls/hr Documented by: PAGE Cosigned by: RUSSELL Admin: 07/28/20 21:37 Dose: 18 units/kg/hr, 26.454 mls/hr Documented by: ELVIA Cosigned by: JANET Remdesivir 100 mg/ Sodium (Chloride) 100 mls @ 100 mls/hr IV Q24H DORIS Stop: 08/02/20 00:59 Insulin Aspart (Novolog) 0 unit SUBCUT TIDAC [facility]; Protocol Last Admin: 07/29/20 06:34 Dose: Not Given Documented by: PAGE Levothyroxine Sodium (Levothyroxine) 75 mcg PO DAILY DORIS Losartan Potassium (Cozaar) 25 mg PO DAILY DORIS Ondansetron HCl (Zofran Odt) 4 mg PO Q6H PRN PRN Reason: Vomiting Sodium Chloride (Saline Flush) 10 ml FLUSH ASDIRECTED PRN PRN Reason: Keep Vein Open Last Admin: 07/28/20 18:15 Dose: 10 ml Documented by: [id number] Sodium Chloride (Saline Flush) 2.5 ml FLUSH ASDIRECTED PRN PRN Reason: Keep Vein Open Last Admin: 07/28/20 18:15 Dose: 2.5 ml Documented by: [id number] Labs: Laboratory Tests 07/28/20 07/28/20 07/28/20 Range/Units 18:14 18:14 18:14 WBC 4.42 (4.0-11.0) K/uL RBC 5.02 (4.30-5.90) M/uL Hgb 14.9 (12.0-16.0) g/dL Hct 44.4 (36.0-46.0) % MCV 88.4 (80.0-98.0) fL MCH 29.7 (27.0-32.0) pg MCHC 33.6 (31.0-37.0) g/dL RDW Std Deviation 43.8 (28.0-62.0) fl RDW Coeff of Masoud 14 (11.0-15.0) % Plt Count 248 (150-400) K/uL MPV 9.40 (7.40-12.00) fL Neut % (Auto) 65.8 (48.0-80.0) % Lymph % (Auto) 24.0 (16.0-40.0) % [place] % (Auto) 10.0 (0.0-15.0) % Eos % (Auto) 0.0 (0.0-7.0) % Baso % (Auto) 0.2 (0.0-1.5) % Neut # (Auto) 2.9 (1.4-5.7) K/uL Lymph # (Auto) 1.1 (0.6-2.4) K/uL [place] # (Auto) 0.4 (0.0-0.8) K/uL Eos # (Auto) 0.0 (0.0-0.7) K/uL Baso # (Auto) 0.0 (0.0-0.1) K/uL Nucleated RBC % 0.0 /100WBC Nucleated RBCs # 0 K/uL INR 0.97 APTT 25.0 (18.6-31.3) SEC D-Dimer, Quantitative 2.83 H (0.0-0.50) mg/L FEU Sodium 138 (136-145) mmol/L Potassium 3.8 (3.5-5.1) mmol/L Chloride 102 (98-107) mmol/L Carbon Dioxide 22.3 (21.0-32.0) mmol/L BUN 17 (7.0-18.0) mg/dL Creatinine 1.0 (0.6-1.0) mg/dL Est Cr Clr Drug Dosing 44.54 mL/min Estimated GFR (MDRD) 55.1 ml/min Glucose 197 H (74-106) mg/dL Calcium 9.4 (8.5-10.1) mg/dL Total Bilirubin 0.5 (0.2-1.0) mg/dL AST 28 (15-37) IU/L ALT 34 (14-63) IU/L Alkaline Phosphatase 80 (46-116) U/L Troponin I < 0.050 (0.000-0.056) ng/mL Total Protein 7.5 (6.4-8.2) g/dL Albumin 3.7 (3.4-5.0) g/dL Globulin 3.8 (2.6-4.0) g/dL Albumin/Globulin Ratio 1.0 (0.9-1.6) SARS-CoV-2 RNA (XIAO) (NEGATIVE) 07/28/20 Range/Units 20:37 WBC (4.0-11.0) K/uL RBC (4.30-5.90) M/uL Hgb (12.0-16.0) g/dL Hct (36.0-46.0) % MCV (80.0-98.0) fL MCH (27.0-32.0) pg MCHC (31.0-37.0) g/dL RDW Std Deviation (28.0-62.0) fl RDW Coeff of Masoud (11.0-15.0) % Plt Count (150-400) K/uL MPV (7.40-12.00) fL Neut % (Auto) (48.0-80.0) % Lymph % (Auto) (16.0-40.0) % [place] % (Auto) (0.0-15.0) % Eos % (Auto) (0.0-7.0) % Baso % (Auto) (0.0-1.5) % Neut # (Auto) (1.4-5.7) K/uL Lymph # (Auto) (0.6-2.4) K/uL [place] # (Auto) (0.0-0.8) K/uL Eos # (Auto) (0.0-0.7) K/uL Baso # (Auto) (0.0-0.1) K/uL Nucleated RBC % /100WBC Nucleated RBCs # K/uL INR APTT (18.6-31.3) SEC D-Dimer, Quantitative (0.0-0.50) mg/L FEU Sodium (136-145) mmol/L Potassium (3.5-5.1) mmol/L Chloride (98-107) mmol/L Carbon Dioxide (21.0-32.0) mmol/L BUN (7.0-18.0) mg/dL Creatinine (0.6-1.0) mg/dL Est Cr Clr Drug Dosing mL/min Estimated GFR (MDRD) ml/min Glucose (74-106) mg/dL Calcium (8.5-10.1) mg/dL Total Bilirubin (0.2-1.0) mg/dL AST (15-37) IU/L ALT (14-63) IU/L Alkaline Phosphatase (46-116) U/L Troponin I (0.000-0.056) ng/mL Total Protein (6.4-8.2) g/dL Albumin (3.4-5.0) g/dL Globulin (2.6-4.0) g/dL Albumin/Globulin Ratio (0.9-1.6) SARS-CoV-2 RNA (XIAO) POSITIVE H (NEGATIVE) Meds: Medications Generic Name Dose Route Start Last Admin Trade Name Freq PRN Reason Stop Dose Admin Acetaminophen 650 mg 07/28/20 23:39 07/29/20 05:03 Tylenol PO 650 mg Q4H PRN Administration Pain (Mild 1-3)/fever Atorvastatin Calcium 20 mg 07/29/20 21:00 Lipitor PO BEDTIME [facility] Dexamethasone 6 mg 07/29/20 09:00 Dexamethasone PO DAILY [facility] Heparin Sodium/Sodium Chloride 25,000 unit in 500 mls @ 26.454 mls/hr 07/28/20 20:53 07/29/20 06:09 Heparin-1/2ns 25,000 Units/500 IV 15 units/kg/hr TITRATE DORIS 22.045 mls/hr Titration Protocol 18 UNITS/KG/HR Remdesivir 100 mg/ Sodium 100 mls @ 100 mls/hr 07/30/20 00:00 Chloride IV 08/02/20 00:59 Q24H [facility] Insulin Aspart 0 unit 07/29/20 07:30 07/29/20 06:34 Novolog SUBCUT Not Given TIDAC [facility] Protocol Levothyroxine Sodium 75 mcg 07/29/20 09:00 Levothyroxine PO DAILY [facility] Losartan Potassium 25 mg 07/29/20 09:00 Cozaar PO DAILY [facility] Ondansetron HCl 4 mg 07/28/20 23:38 Zofran Odt PO Q6H PRN Vomiting Sodium Chloride 10 ml 07/28/20 17:32 07/28/20 18:15 Saline Flush FLUSH 10 ml ASDIRECTED PRN Administration Keep Vein Open Sodium Chloride 2.5 ml 07/28/20 17:32 07/28/20 18:15 Saline Flush FLUSH 2.5 ml ASDIRECTED PRN Administration Keep Vein Open Discontinued Medications Generic Name Dose Route Start Last Admin Trade Name Freq PRN Reason Stop Dose Admin Diphenhydramine HCl 50 mg 07/28/20 17:34 07/28/20 18:14 Benadryl IVPUSH 07/28/20 17:35 50 mg ONETIME ONE Administration Famotidine 20 mg 07/28/20 17:34 07/28/20 18:14 Pepcid IVPUSH 07/28/20 17:35 20 mg ONETIME ONE Administration Heparin Sodium (Porcine) 2,500 units 07/28/20 22:43 07/29/20 01:12 Heparin Sodium IVPUSH 07/28/20 22:44 Not Given .BOLUS ONE Heparin Sodium (Porcine) 5,000 units 07/28/20 23:32 07/28/20 23:59 Heparin Sodium IVPUSH 07/28/20 23:33 5,000 units .BOLUS ONE Administration Hydrocortisone Sodium Succinate 100 mg 07/28/20 17:33 07/28/20 18:14 Solu-Cortef IVPUSH 07/28/20 17:34 100 mg ONETIME ONE Administration Remdesivir 200 mg/ Sodium 250 mls @ 250 mls/hr 07/28/20 23:37 07/28/20 23:59 Chloride IV 07/28/20 23:38 250 mls/hr ONETIME ONE Administration Iopamidol 75 ml 07/28/20 18:58 07/28/20 18:59 Isovue Multipack-370 (76%) IVPUSH 07/28/20 18:59 75 ml ONETIME STA Administration Prochlorperazine Edisylate 10 mg 07/28/20 21:00 07/28/20 21:30 Compazine IVPUSH 07/28/20 21:01 10 mg ONETIME ONE Administration - Re-Assessments/Exams Free Text/Narrative Re-Assessment/Exam: 07/28/20 18:12 Will pretreat with benadryl/pepcid/hydrocortisone. Will get CTA PE study. Will monitor very closely for allergic reaction symptoms during and after CT imaging. Patient will need to be transitioned care to night-team ED physician to f/u results. - My Orders Last 24 Hours: My Active Orders 07/28/20 17:32 Pulse Oximetry [RC] ASDIRECTED Sodium Chloride 0.9% [Saline Flush] 10 ml FLUSH ASDIRECTED PRN Sodium Chloride 0.9% [Saline Flush] 2.5 ml FLUSH ASDIRECTED PRN Saline Lock Insert [OM.PC] Stat - Assessment/Plan Last 24 Hours: My Active Orders 07/28/20 17:32 Pulse Oximetry [RC] ASDIRECTED Sodium Chloride 0.9% [Saline Flush] 10 ml FLUSH ASDIRECTED PRN Sodium Chloride 0.9% [Saline Flush] 2.5 ml FLUSH ASDIRECTED PRN Saline Lock Insert [OM.PC] Stat
[2020-07-28] MEDS: Sodium Chloride 0.9% 2.5 ML Syringe FLUSH PRN (18:15)
[2020-07-28] MEDS ORDERED: Iopamidol 755 MG/ML 500 ML Multipack Bottle IVPUSH STA (18:58)
--- NOTE | 2020-07-28 19:39 | CT ---
INDICATION: COVID positive TECHNIQUE: CT chest pulmonary angiogram acquired with IV contrast. 75 cc Isovue 370 COMPARISON: None FINDINGS: Cardiovascular structures: Normal vascular enhancement of the pulmonary arteries, no sign of pulmonary embolism. Heart size is normal. No sign of aneurysm or dissection in the thoracic aorta. Mediastinum and jaye: No mass or adenopathy. Lungs: Bilateral peripheral based patchy airspace opacities and areas of ground-glass appearance. Findings consistent with COVID related illness. Pleura and pericardium: No effusions. Chest wall and axilla: No mass or adenopathy. Bones: No significant findings. Upper abdomen: Unremarkable. IMPRESSION: No evidence for pulmonary embolus. Bilateral peripheral based patchy airspace opacities and areas of ground glass appearrance. Findings consistent with COVID related illness. Please note that all CT scans at this facility use dose modulation, iterative reconstruction, and/or weight-based dosing when appropriate to reduce radiation dose to as low as reasonably achievable. Dictated by Adam Harrison MD @ Jul 28 2020 7:38PM Signed by Dr. Adam Harrison @ Jul 28 2020 7:38PM
[2020-07-28 19:58] LABS: BLOOD UREA NITROGEN,BUN 17 mg/dL (7.0-18.0); CARBON DIOXIDE,CO2 22.3 mmol/L (21.0-32.0); GLUCOSE RANDOM 197 mg/dL (74-106)
[2020-07-28 20:12] LABS: CHLORIDE,CL 102 mmol/L (98-107); POTASSIUM,K 3.8 mmol/L (3.5-5.1); SODIUM,NA 138 mmol/L (136-145)
[2020-07-28] MEDS ORDERED: Heparin Sod,Pork In 0.45% Nacl 25,000 UNIT/500 ML IV.SOLN IV SCH (20:53)
[2020-07-28] MEDS ORDERED: Prochlorperazine 10 MG/2 ML SDV IVPUSH ONE (21:00)
[2020-07-28] MEDS ORDERED: Heparin Sodium 5,000 Units/ML Vial IVPUSH ONE ×2 (22:43→23:32)
[2020-07-28] MEDS ORDERED: REMDESIVIR 200 MG in Sodium Chloride 0.9% 250 ML IV ONE (23:37)
[2020-07-28] MEDS ORDERED: Ondansetron 4 MG Tab.DIS PO PRN (23:38)
--- NOTE | 2020-07-28 23:41 | PCM.HP.2 ---
H&P History of Present Illness - General Date of Service: 07/28/20 Admit Problem/Dx: Admission Diagnosis/Problem Admission Diagnosis/Problem Pneumonia - History of Present Illness Initial Comments - Free Text/Narative: 70 yo female with pmh of DM and HTN who presents with worsening shortness of breath, cough, nausea, and diarrhea. Patient tested positive for COVID a week ago. In the ED she was requiring 2 L NC to keep sats above 90%. Due to elevated D-dimer patient was started on Heparin drip. CT scan of chest was negative for PE but showed bilateral patchy infiltrates. chest Pain Score (Numeric/FACES): 4 - Related Data Allergies/Adverse Reactions: Allergies Allergy/AdvReac Type Severity Reaction Status Date / Time codeine Allergy Cannot Verified 07/28/20 22:[address] CONTRAST DYE Allergy Difficulty Uncoded 07/28/20 22:24 Breathing Home Medications: Home Meds Aspirin [Stephen Chewable Aspirin] 81 mg PO DAILY 04/23/14 [History] Levothyroxine 1 tab PO DAILY 04/23/14 [History] Losartan [Cozaar] 1 tab PO DAILY 04/23/14 [History] atorvaSTATin [Lipitor] 1 tab PO BEDTIME 04/23/14 [History] metFORMIN [Glucophage XR] 500 mg PO BIDM 04/23/14 [History] Empagliflozin/Linagliptin [Glyxambi 10 mg-5 mg Tablet] 1 tab PO DAILY 09/20/15 [History] Azithromycin [Zithromax] 1 dose PO DAILY 5 Days #6 tab 07/24/20 [Rx] Potassium Chloride 40 meq PO DAILY 5 Days #10 tab.er.prt 07/24/20 [Rx] Ondansetron [Zofran ODT] 4 mg PO Q6H PRN #10 tab.dis 07/27/20 [Rx] Past Medical History HEENT History: Reports: None Cardiovascular History: Reports: High Cholesterol, Hypertension Respiratory History: Reports: None Gastrointestinal History: Reports: None Genitourinary History: Reports: None 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 Musculoskeletal History: Reports: None Neurological History: Reports: None Psychiatric History: Reports: None Endocrine/Metabolic History: Reports: Diabetes, Type II Hematologic History: Reports: None Immunologic History: Reports: None Oncologic (Cancer) History: Reports: None Dermatologic History: Reports: None - Infectious Disease History Infectious Disease History: Reports: Chicken Pox - Past Surgical History Head Surgeries/Procedures: Reports: None HEENT Surgical History: Reports: None Social & Family History - Family History Family Medical History: Noncontributory - Caffeine Use Caffeine Use: Reports: None - Recreational Drug Use Recreational Drug Use: No H&P Review of Systems - Review of Systems: Review Of Systems: Comprehensive ROS is negative, except as noted in HPI. Exam - Exam Exam: See Below - Vital Signs Vital Signs: Last Vital Signs Temp 36.9 C 07/28/20 22:22 Pulse 102 H 07/28/20 22:22 Resp 18 07/28/20 22:22 BP 132/70 07/28/20 22:22 Pulse Ox 92 L 07/28/20 22:22 Weight: 73.482 kg - Exam General: Alert, Oriented HEENT: Mucosa Moist & [place] Lungs: Clear to Auscultation, Normal Respiratory Effort Cardiovascular: Regular Rate, Regular Rhythm GI/Abdominal Exam: Normal Bowel Sounds, Soft, Non-Tender Extremities: Non-Tender, No Pedal Edema Skin: Warm, Dry, Intact Neurological: No: Focal Deficit - Patient Data Lab Results Last 24 hrs: Laboratory Results - last 24 hr 07/28/20 07/28/20 07/28/20 Range/Units 18:14 18:14 18:14 WBC 4.42 (4.0-11.0) K/uL RBC 5.02 (4.30-5.90) M/uL Hgb 14.9 (12.0-16.0) g/dL Hct 44.4 (36.0-46.0) % MCV 88.4 (80.0-98.0) fL MCH 29.7 (27.0-32.0) pg MCHC 33.6 (31.0-37.0) g/dL RDW Std Deviation 43.8 (28.0-62.0) fl RDW Coeff of Masoud 14 (11.0-15.0) % Plt Count 248 (150-400) K/uL MPV 9.40 (7.40-12.00) fL Neut % (Auto) 65.8 (48.0-80.0) % Lymph % (Auto) 24.0 (16.0-40.0) % [place] % (Auto) 10.0 (0.0-15.0) % Eos % (Auto) 0.0 (0.0-7.0) % Baso % (Auto) 0.2 (0.0-1.5) % Neut # (Auto) 2.9 (1.4-5.7) K/uL Lymph # (Auto) 1.1 (0.6-2.4) K/uL [place] # (Auto) 0.4 (0.0-0.8) K/uL Eos # (Auto) 0.0 (0.0-0.7) K/uL Baso # (Auto) 0.0 (0.0-0.1) K/uL Nucleated RBC % 0.0 /100WBC Nucleated RBCs # 0 K/uL INR 0.97 APTT 25.0 (18.6-31.3) SEC D-Dimer, Quantitative 2.83 H (0.0-0.50) mg/L FEU Sodium 138 (136-145) mmol/L Potassium 3.8 (3.5-5.1) mmol/L Chloride 102 (98-107) mmol/L Carbon Dioxide 22.3 (21.0-32.0) mmol/L BUN 17 (7.0-18.0) mg/dL Creatinine 1.0 (0.6-1.0) mg/dL Est Cr Clr Drug Dosing 44.54 mL/min Estimated GFR (MDRD) 55.1 ml/min Glucose 197 H (74-106) mg/dL Calcium 9.4 (8.5-10.1) mg/dL Total Bilirubin 0.5 (0.2-1.0) mg/dL AST 28 (15-37) IU/L ALT 34 (14-63) IU/L Alkaline Phosphatase 80 (46-116) U/L Troponin I < 0.050 (0.000-0.056) ng/mL Total Protein 7.5 (6.4-8.2) g/dL Albumin 3.7 (3.4-5.0) g/dL Globulin 3.8 (2.6-4.0) g/dL Albumin/Globulin Ratio 1.0 (0.9-1.6) SARS-CoV-2 RNA (XIAO) (NEGATIVE) 07/28/20 07/28/20 Range/Units 20:37 21:45 WBC (4.0-11.0) K/uL RBC (4.30-5.90) M/uL Hgb (12.0-16.0) g/dL Hct (36.0-46.0) % MCV (80.0-98.0) fL MCH (27.0-32.0) pg MCHC (31.0-37.0) g/dL RDW Std Deviation (28.0-62.0) fl RDW Coeff of Masoud (11.0-15.0) % Plt Count (150-400) K/uL MPV (7.40-12.00) fL Neut % (Auto) (48.0-80.0) % Lymph % (Auto) (16.0-40.0) % [place] % (Auto) (0.0-15.0) % Eos % (Auto) (0.0-7.0) % Baso % (Auto) (0.0-1.5) % Neut # (Auto) (1.4-5.7) K/uL Lymph # (Auto) (0.6-2.4) K/uL [place] # (Auto) (0.0-0.8) K/uL Eos # (Auto) (0.0-0.7) K/uL Baso # (Auto) (0.0-0.1) K/uL Nucleated RBC % /100WBC Nucleated RBCs # K/uL INR APTT 24.9 (18.6-31.3) SEC D-Dimer, Quantitative (0.0-0.50) mg/L FEU Sodium (136-145) mmol/L Potassium (3.5-5.1) mmol/L Chloride (98-107) mmol/L Carbon Dioxide (21.0-32.0) mmol/L BUN (7.0-18.0) mg/dL Creatinine (0.6-1.0) mg/dL Est Cr Clr Drug Dosing mL/min Estimated GFR (MDRD) ml/min Glucose (74-106) mg/dL Calcium (8.5-10.1) mg/dL Total Bilirubin (0.2-1.0) mg/dL AST (15-37) IU/L ALT (14-63) IU/L Alkaline Phosphatase (46-116) U/L Troponin I (0.000-0.056) ng/mL Total Protein (6.4-8.2) g/dL Albumin (3.4-5.0) g/dL Globulin (2.6-4.0) g/dL Albumin/Globulin Ratio (0.9-1.6) SARS-CoV-2 RNA (XIAO) POSITIVE H (NEGATIVE) Result Diagrams: 07/28/20 18:14 07/28/20 18:14 Sepsis Event Note - Evaluation Sepsis Screening Result: No Definite Risk - Focused Exam Vital Signs: Vital Signs Temp Pulse Resp BP Pulse Ox 07/28/20 22:22 36.9 C 102 H 18 132/70 92 L 07/28/20 21:50 98 17 136/77 92 L 07/28/20 18:18 96 16 125/69 90 L 07/28/20 17:41 36.2 C 107 H 18 115/75 92 L Problem List Initiated/Reviewed/Updated: Yes Orders Last 24hrs: Active Orders 24 hr Category Date Time Status Patient Status [ADT] Routine ADT 07/28/20 21:19 Active Antiembolic Devices [RC] PER UNIT ROUTINE Care 07/28/20 23:40 Ordered Blood Glucose Check, Bedside [RC] TIDMEALS Care 07/28/20 23:39 Ordered Oxygen Therapy [RC] PRN Care 07/28/20 23:39 Ordered Pulse Oximetry [RC] ASDIRECTED Care 07/28/20 17:32 Active Telemetry Monitoring [Cardiac Monitoring] [RC] . Care 07/28/20 21:58 Active DIRECTED Up ad [place] [RC] ASDIRECTED Care 07/28/20 23:39 Ordered VTE/DVT Education [RC] PER UNIT ROUTINE Care 07/28/20 23:39 Ordered Vital Signs [RC] Q4H Care 07/28/20 23:39 Ordered [place] Diet [DIET] Diet 07/28/20 Breakfast Ordered CBC WITH AUTO DIFF [HEME] AM Lab 07/29/20 05:11 Ordered COMPREHENSIVE METABOLIC PN,CMP [CHEM] AM Lab 07/29/20 05:11 Ordered aPTT [PTT,PARTIAL THROMBOPLSTIN TIME] [COAG] Q4H Lab 07/29/20 04:00 Ordered aPTT [PTT,PARTIAL THROMBOPLSTIN TIME] [COAG] Q4H Lab 07/29/20 08:00 Ordered aPTT [PTT,PARTIAL THROMBOPLSTIN TIME] [COAG] Q4H Lab 07/29/20 12:00 Ordered aPTT [PTT,PARTIAL THROMBOPLSTIN TIME] [COAG] Q4H Lab 07/29/20 16:00 Ordered Acetaminophen [TylenoL] Med 07/28/20 23:39 Ordered 650 mg PO Q4H PRN Heparin Sod,Pork In 0.45% Nacl [Heparin-1/2Ns 25,000 Med 07/28/20 20:53 Active Units/500] 25,000 unit in 500 ml IV TITRATE Insulin Aspart [NovoLOG] Med 07/29/20 07:30 Ordered See Protocol SUBCUT TIDAC Levothyroxine Med 07/29/20 09:00 Ordered 75 mcg PO DAILY Losartan Med 07/29/20 09:00 Ordered 1 tab PO DAILY Ondansetron [Zofran ODT] Med 07/28/20 23:38 Ordered 4 mg PO Q6H PRN Remdesivir (Eua) [Remdesivir (EUA)] 100 mg Med 07/29/20 23:45 Ordered Sodium Chloride 0.9% [Normal Saline] 100 ml IV Q24H Sodium Chloride 0.9% [Saline Flush] Med 07/28/20 17:32 Active 10 ml FLUSH ASDIRECTED PRN Sodium Chloride 0.9% [Saline Flush] Med 07/28/20 17:32 Active 2.5 ml FLUSH ASDIRECTED PRN atorvaSTATin [Lipitor] Med 07/29/20 21:00 Ordered 20 mg PO BEDTIME dexAMETHasone Med 07/29/20 09:00 Ordered 6 mg PO DAILY Isolation [COMM] Stat Oth 07/28/20 20:42 Active Saline Lock Insert [OM.PC] Stat Oth 07/28/20 17:32 Ordered Sequential Compression Device [OM.PC] Per Unit Routine Oth 07/28/20 23:39 Ordered Resuscitation Status Routine Resus Stat 07/28/20 23:39 Ordered Medication Orders Atorvastatin Calcium (Lipitor) 20 mg PO BEDTIME DORIS Dexamethasone (Dexamethasone) 6 mg PO DAILY DORIS Heparin Sodium/Sodium Chloride (Heparin-1/2ns 25,000 Units/500) 25,000 unit in 500 mls @ 26.454 mls/hr IV TITRATE DORIS; Protocol Last Admin: 07/28/20 21:37 Dose: 18 units/kg/hr, 26.454 mls/hr Documented by: ELVIA Cosigned by: JANET Remdesivir 100 mg/ Sodium (Chloride) 100 mls @ 100 mls/hr IV Q24H DORIS Insulin Aspart (Novolog) 0 unit SUBCUT TIDAC DORIS; Protocol Levothyroxine Sodium (Levothyroxine) 75 mcg PO DAILY DORIS Non-Formulary Medication (Losartan) 1 tab PO DAILY DORIS Ondansetron HCl (Zofran Odt) 4 mg PO Q6H PRN PRN Reason: Vomiting Sodium Chloride (Saline Flush) 10 ml FLUSH ASDIRECTED PRN PRN Reason: Keep Vein Open Last Admin: 07/28/20 18:15 Dose: 10 ml Documented by: LAURA Sodium Chloride (Saline Flush) 2.5 ml FLUSH ASDIRECTED PRN PRN Reason: Keep Vein Open Last Admin: 07/28/20 18:15 Dose: 2.5 ml Documented by: LAURA Assessment/Plan Comment:: 70 yo female admitted for COVID pneumonia COVID-19: Treating with Remdesivir, dexamethasone, and Heparin drip. Patient informed of emergency use authorization by FDA and side effect including hepatitis, and consents to the use of Remdesivir.
[2020-07-29 04:46] LABS: BLOOD UREA NITROGEN,BUN 13 mg/dL (7.0-18.0); CARBON DIOXIDE,CO2 23.1 mmol/L (21.0-32.0); CHLORIDE,CL 103 mmol/L (98-107); GLUCOSE RANDOM 133 mg/dL (74-106); POTASSIUM,K 3.3 mmol/L (3.5-5.1); SODIUM,NA 140 mmol/L (136-145)
[2020-07-29] MEDS: Acetaminophen 325 MG Tab PO PRN ×3 (05:03→21:27)
[2020-07-29] MEDS: Insulin Aspart 100 Units/ML 3 ML Pen SUBCUT SCH ×3 (06:34→18:14)
[2020-07-29] MEDS: Losartan 50 MG Tab PO SCH (08:05)
[2020-07-29] MEDS: Levothyroxine 75 MCG Tab PO SCH (08:07)
[2020-07-29] MEDS: Dexamethasone 4 MG Tab PO SCH (08:08)
[2020-07-29] MEDS ORDERED: Enoxaparin 40 MG/0.4 ML Syringe SUBCUT SCH (13:00)
--- NOTE | 2020-07-29 13:18 | PCM.PN ---
- General Info Date of Service: 07/29/20 - Review of Systems Systems Review Comment:: feeling better, reports shortness of breath and fatigue - Patient Data Vitals - Most Recent: Last Vital Signs Temp 36.3 C 07/29/20 11:37 Pulse 95 07/29/20 11:37 Resp 19 07/29/20 11:37 BP 130/60 07/29/20 11:37 Pulse Ox 92 L 07/29/20 11:37 Weight - Most Recent: 73.482 kg I&O - Last 24 Hours: Intake & Output 07/28/20 07/29/20 07/29/20 22:59 06:59 14:59 Intake Total 200 Output Total 400 Balance -200 Lab Results Last 24 Hours: Laboratory Results - last 24 hr 07/28/20 07/28/20 07/28/20 Range/Units 18:14 18:14 18:14 WBC 4.42 (4.0-11.0) K/uL RBC 5.02 (4.30-5.90) M/uL Hgb 14.9 (12.0-16.0) g/dL Hct 44.4 (36.0-46.0) % MCV 88.4 (80.0-98.0) fL MCH 29.7 (27.0-32.0) pg MCHC 33.6 (31.0-37.0) g/dL RDW Std Deviation 43.8 (28.0-62.0) fl RDW Coeff of Masodu 14 (11.0-15.0) % Plt Count 248 (150-400) K/uL MPV 9.40 (7.40-12.00) fL Neut % (Auto) 65.8 (48.0-80.0) % Lymph % (Auto) 24.0 (16.0-40.0) % [place] % (Auto) 10.0 (0.0-15.0) % Eos % (Auto) 0.0 (0.0-7.0) % Baso % (Auto) 0.2 (0.0-1.5) % Neut # (Auto) 2.9 (1.4-5.7) K/uL Lymph # (Auto) 1.1 (0.6-2.4) K/uL [place] # (Auto) 0.4 (0.0-0.8) K/uL Eos # (Auto) 0.0 (0.0-0.7) K/uL Baso # (Auto) 0.0 (0.0-0.1) K/uL Nucleated RBC % 0.0 /100WBC Nucleated RBCs # 0 K/uL INR 0.97 APTT 25.0 (18.6-31.3) SEC D-Dimer, Quantitative 2.83 H (0.0-0.50) mg/L FEU Sodium 138 (136-145) mmol/L Potassium 3.8 (3.5-5.1) mmol/L Chloride 102 (98-107) mmol/L Carbon Dioxide 22.3 (21.0-32.0) mmol/L BUN 17 (7.0-18.0) mg/dL Creatinine 1.0 (0.6-1.0) mg/dL Est Cr Clr Drug Dosing 44.54 mL/min Estimated GFR (MDRD) 55.1 ml/min Glucose 197 H (74-106) mg/dL POC Glucose (60-110) mg/dL Calcium 9.4 (8.5-10.1) mg/dL Total Bilirubin 0.5 (0.2-1.0) mg/dL AST 28 (15-37) IU/L ALT 34 (14-63) IU/L Alkaline Phosphatase 80 (46-116) U/L Troponin I < 0.050 (0.000-0.056) ng/mL Total Protein 7.5 (6.4-8.2) g/dL Albumin 3.7 (3.4-5.0) g/dL Globulin 3.8 (2.6-4.0) g/dL Albumin/Globulin Ratio 1.0 (0.9-1.6) SARS-CoV-2 RNA (XIAO) (NEGATIVE) 07/28/20 07/28/20 07/29/20 Range/Units 20:37 21:45 04:15 WBC (4.0-11.0) K/uL RBC (4.30-5.90) M/uL Hgb (12.0-16.0) g/dL Hct (36.0-46.0) % MCV (80.0-98.0) fL MCH (27.0-32.0) pg MCHC (31.0-37.0) g/dL RDW Std Deviation (28.0-62.0) fl RDW Coeff of Masoud (11.0-15.0) % Plt Count (150-400) K/uL MPV (7.40-12.00) fL Neut % (Auto) (48.0-80.0) % Lymph % (Auto) (16.0-40.0) % [place] % (Auto) (0.0-15.0) % Eos % (Auto) (0.0-7.0) % Baso % (Auto) (0.0-1.5) % Neut # (Auto) (1.4-5.7) K/uL Lymph # (Auto) (0.6-2.4) K/uL [place] # (Auto) (0.0-0.8) K/uL Eos # (Auto) (0.0-0.7) K/uL Baso # (Auto) (0.0-0.1) K/uL Nucleated RBC % /100WBC Nucleated RBCs # K/uL INR APTT 24.9 97.8 H (18.6-31.3) SEC D-Dimer, Quantitative (0.0-0.50) mg/L FEU Sodium (136-145) mmol/L Potassium (3.5-5.1) mmol/L Chloride (98-107) mmol/L Carbon Dioxide (21.0-32.0) mmol/L BUN (7.0-18.0) mg/dL Creatinine (0.6-1.0) mg/dL Est Cr Clr Drug Dosing mL/min Estimated GFR (MDRD) ml/min Glucose (74-106) mg/dL POC Glucose (60-110) mg/dL Calcium (8.5-10.1) mg/dL Total Bilirubin (0.2-1.0) mg/dL AST (15-37) IU/L ALT (14-63) IU/L Alkaline Phosphatase (46-116) U/L Troponin I (0.000-0.056) ng/mL Total Protein (6.4-8.2) g/dL Albumin (3.4-5.0) g/dL Globulin (2.6-4.0) g/dL Albumin/Globulin Ratio (0.9-1.6) SARS-CoV-2 RNA (XIAO) POSITIVE H (NEGATIVE) 07/29/20 07/29/20 07/29/20 Range/Units 04:15 04:15 06:10 WBC 3.68 L (4.0-11.0) K/uL RBC 4.61 (4.30-5.90) M/uL Hgb 13.5 (12.0-16.0) g/dL Hct 40.6 (36.0-46.0) % MCV 88.1 (80.0-98.0) fL MCH 29.3 (27.0-32.0) pg MCHC 33.3 (31.0-37.0) g/dL RDW Std Deviation 43.3 (28.0-62.0) fl RDW Coeff of Masoud 13 (11.0-15.0) % Plt Count 216 (150-400) K/uL MPV 9.10 (7.40-12.00) fL Neut % (Auto) 52.7 (48.0-80.0) % Lymph % (Auto) 38.6 (16.0-40.0) % [place] % (Auto) 8.4 (0.0-15.0) % Eos % (Auto) 0.0 (0.0-7.0) % Baso % (Auto) 0.3 (0.0-1.5) % Neut # (Auto) 1.9 (1.4-5.7) K/uL Lymph # (Auto) 1.4 (0.6-2.4) K/uL [place] # (Auto) 0.3 (0.0-0.8) K/uL Eos # (Auto) 0.0 (0.0-0.7) K/uL Baso # (Auto) 0.0 (0.0-0.1) K/uL Nucleated RBC % 0.0 /100WBC Nucleated RBCs # 0 K/uL INR APTT (18.6-31.3) SEC D-Dimer, Quantitative (0.0-0.50) mg/L FEU Sodium 140 (136-145) mmol/L Potassium 3.3 L (3.5-5.1) mmol/L Chloride 103 (98-107) mmol/L Carbon Dioxide 23.1 (21.0-32.0) mmol/L BUN 13 (7.0-18.0) mg/dL Creatinine 0.7 (0.6-1.0) mg/dL Est Cr Clr Drug Dosing 63.63 mL/min Estimated GFR (MDRD) > 60.0 ml/min Glucose 133 H (74-106) mg/dL POC Glucose 125 H (60-110) mg/dL Calcium 8.3 L (8.5-10.1) mg/dL Total Bilirubin 0.4 (0.2-1.0) mg/dL AST 21 (15-37) IU/L ALT 31 (14-63) IU/L Alkaline Phosphatase 69 (46-116) U/L Troponin I (0.000-0.056) ng/mL Total Protein 6.8 (6.4-8.2) g/dL Albumin 3.2 L (3.4-5.0) g/dL Globulin 3.6 (2.6-4.0) g/dL Albumin/Globulin Ratio 0.9 (0.9-1.6) SARS-CoV-2 RNA (XIAO) (NEGATIVE) 07/29/20 07/29/20 Range/Units 08:40 11:33 WBC (4.0-11.0) K/uL RBC (4.30-5.90) M/uL Hgb (12.0-16.0) g/dL Hct (36.0-46.0) % MCV (80.0-98.0) fL MCH (27.0-32.0) pg MCHC (31.0-37.0) g/dL RDW Std Deviation (28.0-62.0) fl RDW Coeff of Masoud (11.0-15.0) % Plt Count (150-400) K/uL MPV (7.40-12.00) fL Neut % (Auto) (48.0-80.0) % Lymph % (Auto) (16.0-40.0) % [place] % (Auto) (0.0-15.0) % Eos % (Auto) (0.0-7.0) % Baso % (Auto) (0.0-1.5) % Neut # (Auto) (1.4-5.7) K/uL Lymph # (Auto) (0.6-2.4) K/uL [place] # (Auto) (0.0-0.8) K/uL Eos # (Auto) (0.0-0.7) K/uL Baso # (Auto) (0.0-0.1) K/uL Nucleated RBC % /100WBC Nucleated RBCs # K/uL INR APTT 47.9 H (18.6-31.3) SEC D-Dimer, Quantitative (0.0-0.50) mg/L FEU Sodium (136-145) mmol/L Potassium (3.5-5.1) mmol/L Chloride (98-107) mmol/L Carbon Dioxide (21.0-32.0) mmol/L BUN (7.0-18.0) mg/dL Creatinine (0.6-1.0) mg/dL Est Cr Clr Drug Dosing mL/min Estimated GFR (MDRD) ml/min Glucose (74-106) mg/dL POC Glucose 234 H (60-110) mg/dL Calcium (8.5-10.1) mg/dL Total Bilirubin (0.2-1.0) mg/dL AST (15-37) IU/L ALT (14-63) IU/L Alkaline Phosphatase (46-116) U/L Troponin I (0.000-0.056) ng/mL Total Protein (6.4-8.2) g/dL Albumin (3.4-5.0) g/dL Globulin (2.6-4.0) g/dL Albumin/Globulin Ratio (0.9-1.6) SARS-CoV-2 RNA (XIAO) (NEGATIVE) Med Orders - Current: Current Medications Acetaminophen (Tylenol) 650 mg PO Q4H PRN PRN Reason: Pain (Mild 1-3)/fever Last Admin: 07/29/20 11:35 Dose: 650 mg Documented by: Atorvastatin Calcium (Lipitor) 20 mg PO BEDTIME [facility] Dexamethasone (Dexamethasone) 6 mg PO DAILY [facility] Last Admin: 07/29/20 08:08 Dose: 6 mg Documented by: Enoxaparin Sodium (Lovenox) 40 mg SUBCUT Q12HR [facility] Remdesivir 100 mg/ Sodium (Chloride) 100 mls @ 100 mls/hr IV Q24H [facility] Stop: 08/02/20 00:59 Insulin Aspart (Novolog) 0 unit SUBCUT TIDAC [facility]; Protocol Last Admin: 07/29/20 12:18 Dose: 2 units Documented by: Levothyroxine Sodium (Levothyroxine) 75 mcg PO DAILY [facility] Last Admin: 07/29/20 08:07 Dose: 75 mcg Documented by: Losartan Potassium (Cozaar) 25 mg PO DAILY [facility] Last Admin: 07/29/20 08:05 Dose: 25 mg Documented by: Ondansetron HCl (Zofran Odt) 4 mg PO Q6H PRN PRN Reason: Vomiting Sodium Chloride (Saline Flush) 10 ml FLUSH ASDIRECTED PRN PRN Reason: Keep Vein Open Last Admin: 07/28/20 18:15 Dose: 10 ml Documented by: Sodium Chloride (Saline Flush) 2.5 ml FLUSH ASDIRECTED PRN PRN Reason: Keep Vein Open Last Admin: 07/28/20 18:15 Dose: 2.5 ml Documented by: Discontinued Medications Diphenhydramine HCl (Benadryl) 50 mg IVPUSH ONETIME ONE Stop: 07/28/20 17:35 Last Admin: 07/28/20 18:14 Dose: 50 mg Documented by: Enoxaparin Sodium (Lovenox) 40 mg SUBCUT 07/29/20@1300 [facility] Stop: 07/29/20 13:01 Famotidine (Pepcid) 20 mg IVPUSH ONETIME ONE Stop: 07/28/20 17:35 Last Admin: 07/28/20 18:14 Dose: 20 mg Documented by: Heparin Sodium (Porcine) (Heparin Sodium) 2,500 units IVPUSH .BOLUS ONE Stop: 07/28/20 22:44 Last Admin: 07/29/20 01:12 Dose: Not Given Documented by: Heparin Sodium (Porcine) (Heparin Sodium) 5,000 units IVPUSH .BOLUS ONE Stop: 07/28/20 23:33 Last Admin: 07/28/20 23:59 Dose: 5,000 units Documented by: Hydrocortisone Sodium Succinate (Solu-Cortef) 100 mg IVPUSH ONETIME ONE Stop: 07/28/20 17:34 Last Admin: 07/28/20 18:14 Dose: 100 mg Documented by: Heparin Sodium/Sodium Chloride (Heparin-1/2ns 25,000 Units/500) 25,000 unit in 500 mls @ 26.454 mls/hr IV TITRATE [facility]; Protocol Last Titration: 07/29/20 06:09 Dose: 15 units/kg/hr, 22.045 mls/hr Documented by: Remdesivir 200 mg/ Sodium (Chloride) 250 mls @ 250 mls/hr IV ONETIME ONE Stop: 07/28/20 23:38 Last Admin: 07/28/20 23:59 Dose: 250 mls/hr Documented by: Iopamidol (Isovue Multipack-370 (76%)) 75 ml IVPUSH ONETIME STA Stop: 07/28/20 18:59 Last Admin: 07/28/20 18:59 Dose: 75 ml Documented by: Prochlorperazine Edisylate (Compazine) 10 mg IVPUSH ONETIME ONE Stop: 07/28/20 21:01 Last Admin: 07/28/20 21:30 Dose: 10 mg Documented by: - Exam General: Alert, Oriented HEENT: Mucous Membr. Moist/Sandy Neck: Supple Lungs: Clear to Auscultation, Normal Respiratory Effort Cardiovascular: Regular Rate, Regular Rhythm Extremities: Non-Tender, No Pedal Edema Skin: Warm, Dry, Intact Neurological: No New Focal Deficit Sepsis Event Note - Evaluation Sepsis Screening Result: No Definite Risk - Focused Exam Vital Signs: Vital Signs Temp Pulse Resp BP BP Pulse Ox 07/29/20 11:37 36.3 C 95 19 130/60 92 L 07/29/20 08:05 123/63 07/29/20 07:50 36.6 C 87 17 123/63 93 L 07/29/20 04:24 36.6 C 97 18 127/61 96 - Problem List Review Problem List Initiated/Reviewed/Updated: Yes - My Orders Last 24 Hours: My Active Orders 07/28/20 21:58 Telemetry Monitoring [Cardiac Monitoring] [RC] Q8H 07/28/20 23:38 Ondansetron [Zofran ODT] 4 mg PO Q6H PRN 07/28/20 23:39 Blood Glucose Check, Bedside [RC] TIDMEALS Oxygen Therapy [RC] PRN Up ad [place] [RC] ASDIRECTED VTE/DVT Education [RC] Q12H Vital Signs [RC] Q4H Acetaminophen [TylenoL] 650 mg PO Q4H PRN Sequential Compression Device [OM.PC] Per Unit Routine Resuscitation Status Routine 07/28/20 23:40 Antiembolic Devices [RC] PER UNIT ROUTINE 07/29/20 07:30 Insulin Aspart [NovoLOG] See Protocol SUBCUT TIDAC 07/29/20 09:00 Levothyroxine 75 mcg PO DAILY Losartan [Cozaar] 25 mg PO DAILY dexAMETHasone 6 mg PO DAILY 07/29/20 21:00 Enoxaparin [Lovenox] 40 mg SUBCUT Q12HR atorvaSTATin [Lipitor] 20 mg PO BEDTIME 07/30/20 00:00 Remdesivir (Eua) [Remdesivir (EUA)] 100 mg Sodium Chloride 0.9% [Normal Saline] 100 ml IV Q24H 07/30/20 05:11 CBC WITH AUTO DIFF [HEME] AM COMPREHENSIVE METABOLIC PN,CMP [CHEM] AM - Plan Plan:: 70 yo female admitted for COVID pneumonia COVID-19: Treating with Remdesivir, dexamethasone, and lovenox 40mg BID.
[2020-07-29] MEDS: atorvaSTATin 20 MG Tab PO SCH (21:27)
[2020-07-29] MEDS: Enoxaparin 40 MG/0.4 ML Syringe SUBCUT SCH (21:29)
[2020-07-29] MEDS: Sodium Chloride 0.9% 2.5 ML Syringe FLUSH PRN ×4 (21:30→23:57)
[2020-07-29] MEDS: REMDESIVIR 100 MG in Sodium Chloride 0.9% 100 ML IV SCH (23:55)
[2020-07-30] MEDS: Sodium Chloride 0.9% 2.5 ML Syringe FLUSH PRN (04:27)
[2020-07-30 06:06] LABS: BLOOD UREA NITROGEN,BUN 20 mg/dL (7.0-18.0); CARBON DIOXIDE,CO2 24.8 mmol/L (21.0-32.0); CHLORIDE,CL 103 mmol/L (98-107); GLUCOSE RANDOM 161 mg/dL (74-106); POTASSIUM,K 3.5 mmol/L (3.5-5.1); SODIUM,NA 139 mmol/L (136-145)
[2020-07-30] MEDS: Insulin Aspart 100 Units/ML 3 ML Pen SUBCUT SCH ×3 (06:42→18:22)
[2020-07-30] MEDS: Enoxaparin 40 MG/0.4 ML Syringe SUBCUT SCH ×2 (09:45→20:13)
[2020-07-30] MEDS: Losartan 50 MG Tab PO SCH (09:59)
[2020-07-30] MEDS: Dexamethasone 4 MG Tab PO SCH (10:00)
[2020-07-30] MEDS: Levothyroxine 75 MCG Tab PO SCH (10:00)
--- NOTE | 2020-07-30 11:19 | PCM.PN ---
- General Info Date of Service: 07/30/20 Admission Dx/Problem (Free Text): Admission Diagnosis/Problem Admission Diagnosis/Problem Pneumonia Subjective Update: seen at bedside, feeling better, still on 2lts oxygen, keen to go home - Review of Systems General: Denies: Fever, Weakness Cardiovascular: Denies: Chest Pain, Palpitations Gastrointestinal: Denies: Abdominal Pain, Constipation, Decreased Appetite, Nausea, Vomiting Genitourinary: Denies: Dysuria, Frequency, Burning Musculoskeletal: Denies: Neck Pain, Shoulder Pain, Arm Pain Skin: Denies: Cyanosis, Jaundice, Mottled - Patient Data Vitals - Most Recent: Last Vital Signs Temp 36.2 C 07/30/20 09:50 Pulse 80 07/30/20 09:50 Resp 16 07/30/20 04:25 BP 128/71 07/30/20 09:59 Pulse Ox 92 L 07/30/20 09:50 Weight - Most Recent: 73.482 kg I&O - Last 24 Hours: Intake & Output 07/29/20 07/30/20 07/30/20 22:59 06:59 14:59 Intake Total 650 550 Output Total 700 400 Balance -50 150 Lab Results Last 24 Hours: Laboratory Results - last 24 hr 07/29/20 07/29/20 07/30/20 Range/Units 11:33 18:12 05:15 WBC 3.47 L (4.0-11.0) K/uL RBC 4.71 (4.30-5.90) M/uL Hgb 13.5 (12.0-16.0) g/dL Hct 41.4 (36.0-46.0) % MCV 87.9 (80.0-98.0) fL MCH 28.7 (27.0-32.0) pg MCHC 32.6 (31.0-37.0) g/dL RDW Std Deviation 42.4 (28.0-62.0) fl RDW Coeff of Masoud 13 (11.0-15.0) % Plt Count 248 (150-400) K/uL MPV 10.00 (7.40-12.00) fL Neut % (Auto) 52.1 (48.0-80.0) % Lymph % (Auto) 34.9 (16.0-40.0) % [place] % (Auto) 12.7 (0.0-15.0) % Eos % (Auto) 0.0 (0.0-7.0) % Baso % (Auto) 0.3 (0.0-1.5) % Neut # (Auto) 1.8 (1.4-5.7) K/uL Lymph # (Auto) 1.2 (0.6-2.4) K/uL [place] # (Auto) 0.4 (0.0-0.8) K/uL Eos # (Auto) 0.0 (0.0-0.7) K/uL Baso # (Auto) 0.0 (0.0-0.1) K/uL Nucleated RBC % 0.0 /100WBC Nucleated RBCs # 0 K/uL Sodium (136-145) mmol/L Potassium (3.5-5.1) mmol/L Chloride (98-107) mmol/L Carbon Dioxide (21.0-32.0) mmol/L BUN (7.0-18.0) mg/dL Creatinine (0.6-1.0) mg/dL Est Cr Clr Drug Dosing mL/min Estimated GFR (MDRD) ml/min Glucose (74-106) mg/dL POC Glucose 234 H 171 H (60-110) mg/dL Calcium (8.5-10.1) mg/dL Total Bilirubin (0.2-1.0) mg/dL AST (15-37) IU/L ALT (14-63) IU/L Alkaline Phosphatase (46-116) U/L Total Protein (6.4-8.2) g/dL Albumin (3.4-5.0) g/dL Globulin (2.6-4.0) g/dL Albumin/Globulin Ratio (0.9-1.6) 07/30/20 07/30/20 Range/Units 05:15 06:40 WBC (4.0-11.0) K/uL RBC (4.30-5.90) M/uL Hgb (12.0-16.0) g/dL Hct (36.0-46.0) % MCV (80.0-98.0) fL MCH (27.0-32.0) pg MCHC (31.0-37.0) g/dL RDW Std Deviation (28.0-62.0) fl RDW Coeff of Masoud (11.0-15.0) % Plt Count (150-400) K/uL MPV (7.40-12.00) fL Neut % (Auto) (48.0-80.0) % Lymph % (Auto) (16.0-40.0) % [place] % (Auto) (0.0-15.0) % Eos % (Auto) (0.0-7.0) % Baso % (Auto) (0.0-1.5) % Neut # (Auto) (1.4-5.7) K/uL Lymph # (Auto) (0.6-2.4) K/uL [place] # (Auto) (0.0-0.8) K/uL Eos # (Auto) (0.0-0.7) K/uL Baso # (Auto) (0.0-0.1) K/uL Nucleated RBC % /100WBC Nucleated RBCs # K/uL Sodium 139 (136-145) mmol/L Potassium 3.5 (3.5-5.1) mmol/L Chloride 103 (98-107) mmol/L Carbon Dioxide 24.8 (21.0-32.0) mmol/L BUN 20 H (7.0-18.0) mg/dL Creatinine 0.6 (0.6-1.0) mg/dL Est Cr Clr Drug Dosing 74.23 mL/min Estimated GFR (MDRD) > 60.0 ml/min Glucose 161 H (74-106) mg/dL POC Glucose 152 H (60-110) mg/dL Calcium 8.3 L (8.5-10.1) mg/dL Total Bilirubin 0.4 (0.2-1.0) mg/dL AST 17 (15-37) IU/L ALT 28 (14-63) IU/L Alkaline Phosphatase 62 (46-116) U/L Total Protein 6.8 (6.4-8.2) g/dL Albumin 3.1 L (3.4-5.0) g/dL Globulin 3.7 (2.6-4.0) g/dL Albumin/Globulin Ratio 0.8 L (0.9-1.6) Med Orders - Current: Current Medications Acetaminophen (Tylenol) 650 mg PO Q4H PRN PRN Reason: Pain (Mild 1-3)/fever Last Admin: 07/29/20 21:27 Dose: 650 mg Documented by: Atorvastatin Calcium (Lipitor) 20 mg PO BEDTIME [facility] Last Admin: 07/29/20 21:27 Dose: 20 mg Documented by: Dexamethasone (Dexamethasone) 6 mg PO DAILY [facility] Last Admin: 07/30/20 10:00 Dose: 6 mg Documented by: Enoxaparin Sodium (Lovenox) 40 mg SUBCUT Q12HR [facility] Last Admin: 07/30/20 09:45 Dose: 40 mg Documented by: Remdesivir 100 mg/ Sodium (Chloride) 100 mls @ 100 mls/hr IV Q24H [facility] Stop: 08/02/20 00:59 Last Admin: 07/29/20 23:55 Dose: 100 mls/hr Documented by: Insulin Aspart (Novolog) 0 unit SUBCUT TIDAC [facility]; Protocol Last Admin: 07/30/20 06:42 Dose: 1 unit Documented by: Levothyroxine Sodium (Levothyroxine) 75 mcg PO DAILY [facility] Last Admin: 07/30/20 10:00 Dose: 75 mcg Documented by: Losartan Potassium (Cozaar) 25 mg PO DAILY [facility] Last Admin: 07/30/20 09:59 Dose: 25 mg Documented by: Ondansetron HCl (Zofran Odt) 4 mg PO Q6H PRN PRN Reason: Vomiting Last Admin: 07/29/20 21:28 Dose: 4 mg Documented by: Sodium Chloride (Saline Flush) 10 ml FLUSH ASDIRECTED PRN PRN Reason: Keep Vein Open Last Admin: 07/28/20 18:15 Dose: 10 ml Documented by: Sodium Chloride (Saline Flush) 2.5 ml FLUSH ASDIRECTED PRN PRN Reason: Keep Vein Open Last Admin: 07/30/20 04:27 Dose: 2.5 ml Documented by: Discontinued Medications Diphenhydramine HCl (Benadryl) 50 mg IVPUSH ONETIME ONE Stop: 07/28/20 17:35 Last Admin: 07/28/20 18:14 Dose: 50 mg Documented by: Enoxaparin Sodium (Lovenox) 40 mg SUBCUT 07/29/20@1300 [facility] Stop: 07/29/20 13:01 Last Admin: 07/29/20 13:27 Dose: 40 mg Documented by: Famotidine (Pepcid) 20 mg IVPUSH ONETIME ONE Stop: 07/28/20 17:35 Last Admin: 07/28/20 18:14 Dose: 20 mg Documented by: Heparin Sodium (Porcine) (Heparin Sodium) 2,500 units IVPUSH .BOLUS ONE Stop: 07/28/20 22:44 Last Admin: 07/29/20 01:12 Dose: Not Given Documented by: Heparin Sodium (Porcine) (Heparin Sodium) 5,000 units IVPUSH .BOLUS ONE Stop: 07/28/20 23:33 Last Admin: 07/28/20 23:59 Dose: 5,000 units Documented by: Hydrocortisone Sodium Succinate (Solu-Cortef) 100 mg IVPUSH ONETIME ONE Stop: 07/28/20 17:34 Last Admin: 07/28/20 18:14 Dose: 100 mg Documented by: Heparin Sodium/Sodium Chloride (Heparin-1/2ns 25,000 Units/500) 25,000 unit in 500 mls @ 26.454 mls/hr IV TITRATE [facility]; Protocol Last Titration: 07/29/20 10:02 Dose: 0 units/kg/hr, 0 mls/hr Documented by: Remdesivir 200 mg/ Sodium (Chloride) 250 mls @ 250 mls/hr IV ONETIME ONE Stop: 07/28/20 23:38 Last Admin: 07/28/20 23:59 Dose: 250 mls/hr Documented by: Iopamidol (Isovue Multipack-370 (76%)) 75 ml IVPUSH ONETIME STA Stop: 07/28/20 18:59 Last Admin: 07/28/20 18:59 Dose: 75 ml Documented by: Prochlorperazine Edisylate (Compazine) 10 mg IVPUSH ONETIME ONE Stop: 07/28/20 21:01 Last Admin: 07/28/20 21:30 Dose: 10 mg Documented by: - Exam Quality Assessment: Supplemental Oxygen General: Alert, Oriented Neck: Supple, Trachea Midline Lungs: Clear to Auscultation, Normal Respiratory Effort, Decreased Breath Sounds. No: Crackles Cardiovascular: Regular Rate, Regular Rhythm GI/Abdominal Exam: Normal Bowel Sounds, Non-Tender Sepsis Event Note - Evaluation Sepsis Screening Result: No Definite Risk - Focused Exam Vital Signs: Vital Signs Temp Pulse Resp BP BP Pulse Ox 07/30/20 09:59 128/71 07/30/20 09:50 36.2 C 80 128/71 92 L 07/30/20 04:25 36.2 C 78 16 127/74 93 L 07/30/20 01:45 15 92 L 07/30/20 00:03 35.9 C L 69 16 126/66 93 L - Problem List & Annotations (1) COVID-19 SNOMED Code(s): 384263246 Code(s): U07.1 - COVID-19 Status: Acute Current Visit: Yes (2) Pneumonia due to COVID-19 virus SNOMED Code(s): 286012835979703255 Code(s): U07.1 - COVID-19; J12.89 - OTHER VIRAL PNEUMONIA Status: Acute Current Visit: No - Problem List Review Problem List Initiated/Reviewed/Updated: Yes - Plan Plan:: 70 yo female admitted for COVID pneumonia COVID-19: Treating with Remdesivir, dexamethasone, and lovenox 40mg BID. Wean of oxygen as able start Azithromycin
[2020-07-30] MEDS: Azithromycin 250 MG Tab PO SCH (14:21)
[2020-07-30] MEDS: Albuterol/Ipratropium 4 GM Inhalation Spray INH PRN ×3 (14:22→23:10)
[2020-07-30] MEDS: atorvaSTATin 20 MG Tab PO SCH (20:05)
[2020-07-30] MEDS: REMDESIVIR 100 MG in Sodium Chloride 0.9% 100 ML IV SCH (23:10)
[2020-07-31] MEDS: Albuterol/Ipratropium 4 GM Inhalation Spray INH PRN ×3 (03:44→20:33)
[2020-07-31] MEDS: Insulin Aspart 100 Units/ML 3 ML Pen SUBCUT SCH ×3 (08:28→17:49)
[2020-07-31] MEDS: Losartan 50 MG Tab PO SCH (08:42)
[2020-07-31] MEDS: Levothyroxine 75 MCG Tab PO SCH (08:42)
[2020-07-31] MEDS: Dexamethasone 4 MG Tab PO SCH (08:43)
[2020-07-31] MEDS: Enoxaparin 40 MG/0.4 ML Syringe SUBCUT SCH ×2 (08:48→20:33)
[2020-07-31 10:26] LABS: BLOOD UREA NITROGEN,BUN 22 mg/dL (7.0-18.0); CARBON DIOXIDE,CO2 25.7 mmol/L (21.0-32.0); CHLORIDE,CL 105 mmol/L (98-107); GLUCOSE RANDOM 228 mg/dL (74-106); POTASSIUM,K 3.3 mmol/L (3.5-5.1); SODIUM,NA 140 mmol/L (136-145)
[2020-07-31] MEDS ORDERED: Potassium Chloride 10% 20 MEQ/15 ML Soln 30 ML UD Cup PO ONE (12:23)
[2020-07-31] MEDS ORDERED: Phosphorus #1 250 MG Tab PO ONE (12:23)
--- NOTE | 2020-07-31 12:28 | PCM.PN ---
- General Info Date of Service: 07/31/20 Admission Dx/Problem (Free Text): Admission Diagnosis/Problem Admission Diagnosis/Problem Pneumonia Subjective Update: seen at bedside, feeling better, 1.5 lts oxygen, - Review of Systems General: Reports: Weakness, Fatigue. Denies: Fever Pulmonary: Reports: Shortness of Breath, Cough. Denies: Pleuritic Chest Pain, Sputum Cardiovascular: Denies: Chest Pain, Palpitations Gastrointestinal: Denies: Abdominal Pain, Constipation, Decreased Appetite Genitourinary: Denies: Dysuria, Frequency, Burning Musculoskeletal: Denies: Neck Pain, Shoulder Pain, Arm Pain - Patient Data Vitals - Most Recent: Last Vital Signs Temp 36.3 C 07/31/20 12:13 Pulse 69 07/31/20 12:13 Resp 18 07/31/20 12:13 BP 143/65 H 07/31/20 12:13 Pulse Ox 95 07/31/20 12:13 Weight - Most Recent: 73.482 kg I&O - Last 24 Hours: Intake & Output 07/30/20 07/31/20 07/31/20 22:59 06:59 14:59 Intake Total 650 600 Output Total 900 800 Balance -250 -200 Lab Results Last 24 Hours: Laboratory Results - last 24 hr 07/30/20 07/30/20 07/31/20 Range/Units 12:49 17:24 06:27 WBC (4.0-11.0) K/uL RBC (4.30-5.90) M/uL Hgb (12.0-16.0) g/dL Hct (36.0-46.0) % MCV (80.0-98.0) fL MCH (27.0-32.0) pg MCHC (31.0-37.0) g/dL RDW Std Deviation (28.0-62.0) fl RDW Coeff of Masoud (11.0-15.0) % Plt Count (150-400) K/uL MPV (7.40-12.00) fL Neut % (Auto) (48.0-80.0) % Lymph % (Auto) (16.0-40.0) % Patrick % (Auto) (0.0-15.0) % Eos % (Auto) (0.0-7.0) % Baso % (Auto) (0.0-1.5) % Neut # (Auto) (1.4-5.7) K/uL Lymph # (Auto) (0.6-2.4) K/uL Patrick # (Auto) (0.0-0.8) K/uL Eos # (Auto) (0.0-0.7) K/uL Baso # (Auto) (0.0-0.1) K/uL Nucleated RBC % /100WBC Nucleated RBCs # K/uL Sodium (136-145) mmol/L Potassium (3.5-5.1) mmol/L Chloride (98-107) mmol/L Carbon Dioxide (21.0-32.0) mmol/L BUN (7.0-18.0) mg/dL Creatinine (0.6-1.0) mg/dL Est Cr Clr Drug Dosing mL/min Estimated GFR (MDRD) ml/min Glucose (74-106) mg/dL POC Glucose 247 H 253 H 188 H (60-110) mg/dL Calcium (8.5-10.1) mg/dL Phosphorus (2.6-4.7) mg/dL Magnesium (1.8-2.4) mg/dL Total Bilirubin (0.2-1.0) mg/dL AST (15-37) IU/L ALT (14-63) IU/L Alkaline Phosphatase (46-116) U/L Total Protein (6.4-8.2) g/dL Albumin (3.4-5.0) g/dL Globulin (2.6-4.0) g/dL Albumin/Globulin Ratio (0.9-1.6) 07/31/20 07/31/20 07/31/20 Range/Units 09:30 09:30 12:10 WBC 4.01 (4.0-11.0) K/uL RBC 4.97 (4.30-5.90) M/uL Hgb 14.5 (12.0-16.0) g/dL Hct 43.6 (36.0-46.0) % MCV 87.7 (80.0-98.0) fL MCH 29.2 (27.0-32.0) pg MCHC 33.3 (31.0-37.0) g/dL RDW Std Deviation 42.0 (28.0-62.0) fl RDW Coeff of Masoud 13 (11.0-15.0) % Plt Count 275 (150-400) K/uL MPV 9.80 (7.40-12.00) fL Neut % (Auto) 50.9 (48.0-80.0) % Lymph % (Auto) 36.9 (16.0-40.0) % Patrick % (Auto) 11.0 (0.0-15.0) % Eos % (Auto) 0.5 (0.0-7.0) % Baso % (Auto) 0.7 (0.0-1.5) % Neut # (Auto) 2.0 (1.4-5.7) K/uL Lymph # (Auto) 1.5 (0.6-2.4) K/uL Patrick # (Auto) 0.4 (0.0-0.8) K/uL Eos # (Auto) 0.0 (0.0-0.7) K/uL Baso # (Auto) 0.0 (0.0-0.1) K/uL Nucleated RBC % 0.0 /100WBC Nucleated RBCs # 0 K/uL Sodium 140 (136-145) mmol/L Potassium 3.3 L (3.5-5.1) mmol/L Chloride 105 (98-107) mmol/L Carbon Dioxide 25.7 (21.0-32.0) mmol/L BUN 22 H (7.0-18.0) mg/dL Creatinine 0.8 (0.6-1.0) mg/dL Est Cr Clr Drug Dosing 55.68 mL/min Estimated GFR (MDRD) > 60.0 ml/min Glucose 228 H (74-106) mg/dL POC Glucose 268 H (60-110) mg/dL Calcium 8.3 L (8.5-10.1) mg/dL Phosphorus 2.0 L (2.6-4.7) mg/dL Magnesium 1.9 (1.8-2.4) mg/dL Total Bilirubin 0.4 (0.2-1.0) mg/dL AST 21 (15-37) IU/L ALT 27 (14-63) IU/L Alkaline Phosphatase 62 (46-116) U/L Total Protein 6.9 (6.4-8.2) g/dL Albumin 3.1 L (3.4-5.0) g/dL Globulin 3.8 (2.6-4.0) g/dL Albumin/Globulin Ratio 0.8 L (0.9-1.6) Med Orders - Current: Current Medications Acetaminophen (Tylenol) 650 mg PO Q4H PRN PRN Reason: Pain (Mild 1-3)/fever Last Admin: 07/29/20 21:27 Dose: 650 mg Documented by: Albuterol/Ipratropium (Combivent Respimat) 0 gm INH Q4H PRN PRN Reason: Dyspnea Last Admin: 07/31/20 08:41 Dose: 1 puff Documented by: Atorvastatin Calcium (Lipitor) 20 mg PO BEDTIME [facility] Last Admin: 07/30/20 20:05 Dose: 20 mg Documented by: Azithromycin (Zithromax) 500 mg PO Q24H [facility] Last Admin: 07/30/20 14:21 Dose: 500 mg Documented by: Dexamethasone (Dexamethasone) 6 mg PO DAILY [facility] Last Admin: 07/31/20 08:43 Dose: 6 mg Documented by: Enoxaparin Sodium (Lovenox) 40 mg SUBCUT Q12HR [facility] Last Admin: 07/31/20 08:48 Dose: 40 mg Documented by: Remdesivir 100 mg/ Sodium (Chloride) 100 mls @ 100 mls/hr IV Q24H [facility] Stop: 08/02/20 00:59 Last Admin: 07/30/20 23:10 Dose: 100 mls/hr Documented by: Insulin Aspart (Novolog) 0 unit SUBCUT TIDAC [facility]; Protocol Last Admin: 07/31/20 08:28 Dose: 1 unit Documented by: Levothyroxine Sodium (Levothyroxine) 75 mcg PO DAILY [facility] Last Admin: 07/31/20 08:42 Dose: 75 mcg Documented by: Losartan Potassium (Cozaar) 25 mg PO DAILY [facility] Last Admin: 07/31/20 08:42 Dose: 25 mg Documented by: Ondansetron HCl (Zofran Odt) 4 mg PO Q6H PRN PRN Reason: Vomiting Last Admin: 07/29/20 21:28 Dose: 4 mg Documented by: Potassium Chloride (Potassium Chloride) 40 meq PO ONETIME ONE Stop: 07/31/20 12:24 Sodium Chloride (Saline Flush) 10 ml FLUSH ASDIRECTED PRN PRN Reason: Keep Vein Open Last Admin: 07/28/20 18:15 Dose: 10 ml Documented by: Sodium Chloride (Saline Flush) 2.5 ml FLUSH ASDIRECTED PRN PRN Reason: Keep Vein Open Last Admin: 07/30/20 04:27 Dose: 2.5 ml Documented by: Sodium Phosphate (Neutra-Phos) 250 mg PO ONETIME ONE Stop: 07/31/20 12:24 Discontinued Medications Diphenhydramine HCl (Benadryl) 50 mg IVPUSH ONETIME ONE Stop: 07/28/20 17:35 Last Admin: 07/28/20 18:14 Dose: 50 mg Documented by: Enoxaparin Sodium (Lovenox) 40 mg SUBCUT 07/29/20@1300 [facility] Stop: 07/29/20 13:01 Last Admin: 07/29/20 13:27 Dose: 40 mg Documented by: Famotidine (Pepcid) 20 mg IVPUSH ONETIME ONE Stop: 07/28/20 17:35 Last Admin: 07/28/20 18:14 Dose: 20 mg Documented by: Heparin Sodium (Porcine) (Heparin Sodium) 2,500 units IVPUSH .BOLUS ONE Stop: 07/28/20 22:44 Last Admin: 07/29/20 01:12 Dose: Not Given Documented by: Heparin Sodium (Porcine) (Heparin Sodium) 5,000 units IVPUSH .BOLUS ONE Stop: 07/28/20 23:33 Last Admin: 07/28/20 23:59 Dose: 5,000 units Documented by: Hydrocortisone Sodium Succinate (Solu-Cortef) 100 mg IVPUSH ONETIME ONE Stop: 07/28/20 17:34 Last Admin: 07/28/20 18:14 Dose: 100 mg Documented by: Heparin Sodium/Sodium Chloride (Heparin-1/2ns 25,000 Units/500) 25,000 unit in 500 mls @ 26.454 mls/hr IV TITRATE [facility]; Protocol Last Titration: 07/29/20 10:02 Dose: 0 units/kg/hr, 0 mls/hr Documented by: Remdesivir 200 mg/ Sodium (Chloride) 250 mls @ 250 mls/hr IV ONETIME ONE Stop: 07/28/20 23:38 Last Admin: 07/28/20 23:59 Dose: 250 mls/hr Documented by: Iopamidol (Isovue Multipack-370 (76%)) 75 ml IVPUSH ONETIME STA Stop: 07/28/20 18:59 Last Admin: 07/28/20 18:59 Dose: 75 ml Documented by: Prochlorperazine Edisylate (Compazine) 10 mg IVPUSH ONETIME ONE Stop: 07/28/20 21:01 Last Admin: 07/28/20 21:30 Dose: 10 mg Documented by: - Exam Quality Assessment: Supplemental Oxygen General: Alert, Oriented Lungs: Normal Respiratory Effort, Crackles, Rales GI/Abdominal Exam: Soft, Non-Tender Extremities: Normal Inspection, Normal Range of Motion Sepsis Event Note - Evaluation Sepsis Screening Result: No Definite Risk - Focused Exam Vital Signs: Vital Signs Temp Pulse Resp BP BP Pulse Ox 07/31/20 12:13 36.3 C 69 18 143/65 H 95 07/31/20 08:42 121/62 07/31/20 08:25 36.4 C 72 17 121/62 93 L 07/31/20 03:41 36.0 C L 81 18 110/57 L 93 L - Problem List & Annotations (1) COVID-19 SNOMED Code(s): 742761845 Code(s): U07.1 - COVID-19 Status: Acute Current Visit: Yes (2) Pneumonia due to COVID-19 virus SNOMED Code(s): 118867095208662764 Code(s): U07.1 - COVID-19; J12.89 - OTHER VIRAL PNEUMONIA Status: Acute Current Visit: No - Problem List Review Problem List Initiated/Reviewed/Updated: Yes - My Orders Last 24 Hours: My Active Orders 07/30/20 13:20 RT Post Treatment Assessment [RC] Click to Edit RT Pre-Treatment Assessment [RC] Click to Edit Albuterol/Ipratropium [Combivent Respimat] See Dose Instructions INH Q4H PRN 07/30/20 13:23 Communication Order [RC] DAILY 07/30/20 13:30 Azithromycin [Zithromax] 500 mg PO Q24H 07/31/20 12:23 Phosphorus #1 [Neutra-Phos] 250 mg PO ONETIME ONE Potassium Chloride 40 meq PO ONETIME ONE 08/01/20 05:11 BMP [BASIC METABOLIC PANEL,BMP] [CHEM] AM CBC WITH AUTO DIFF [HEME] AM MAGNESIUM [CHEM] AM PHOSPHORUS [CHEM] AM - Plan Plan:: 70 yo female admitted for COVID pneumonia COVID-19: Treating with Remdesivir, dexamethasone, and lovenox 40mg BID. Wean of oxygen as able cont Azithromycin 1 time lasix IV
[2020-07-31] MEDS ORDERED: Furosemide 40 MG/4 ML VIAL IVPUSH ONE (12:29)
[2020-07-31] MEDS: Azithromycin 250 MG Tab PO SCH (13:25)
[2020-07-31] MEDS: atorvaSTATin 20 MG Tab PO SCH (20:33)
[2020-08-01] MEDS: REMDESIVIR 100 MG in Sodium Chloride 0.9% 100 ML IV SCH (00:21)
[2020-08-01 06:49] LABS: BLOOD UREA NITROGEN,BUN 23 mg/dL (7.0-18.0); CARBON DIOXIDE,CO2 24.6 mmol/L (21.0-32.0); CHLORIDE,CL 103 mmol/L (98-107); GLUCOSE RANDOM 207 mg/dL (74-106); POTASSIUM,K 3.3 mmol/L (3.5-5.1); SODIUM,NA 139 mmol/L (136-145)
[2020-08-01] MEDS: Insulin Aspart 100 Units/ML 3 ML Pen SUBCUT SCH ×3 (08:59→17:58)
[2020-08-01] MEDS: Dexamethasone 4 MG Tab PO SCH (09:05)
[2020-08-01] MEDS: Levothyroxine 75 MCG Tab PO SCH (09:06)
[2020-08-01] MEDS: Losartan 50 MG Tab PO SCH (09:07)
[2020-08-01] MEDS: Enoxaparin 40 MG/0.4 ML Syringe SUBCUT SCH ×2 (09:08→21:03)
[2020-08-01] MEDS ORDERED: Potassium Chloride 10% 20 MEQ/15 ML Soln 30 ML UD Cup PO ONE (10:06)
[2020-08-01] MEDS: Albuterol/Ipratropium 4 GM Inhalation Spray INH PRN (11:28)
[2020-08-01] MEDS: Azithromycin 250 MG Tab PO SCH (12:51)
[2020-08-01] MEDS ORDERED: Furosemide 40 MG/4 ML VIAL IVPUSH ONE (12:53)
--- NOTE | 2020-08-01 12:53 | PCM.PN ---
- General Info Date of Service: 08/01/20 Admission Dx/Problem (Free Text): Admission Diagnosis/Problem Admission Diagnosis/Problem Pneumonia Subjective Update: seen at bedside, feeling better, 1 lts oxygen, Functional Status: Reports: Tolerating Diet, Ambulating, Urinating, Incentive Spirometry. Denies: New Symptoms - Review of Systems General: Reports: Weakness. Denies: Fever, Fatigue, Malaise Pulmonary: Reports: Shortness of Breath, Cough, Sputum. Denies: Pleuritic Chest Pain, Hemoptysis, Wheezing Cardiovascular: Reports: Dyspnea on Exertion. Denies: Chest Pain, Palpitations, Orthopnea, PND, Edema, Lightheadedness Gastrointestinal: Denies: Abdominal Pain, Constipation, Decreased Appetite Genitourinary: Denies: Dysuria, Frequency, Burning Musculoskeletal: Denies: Neck Pain, Shoulder Pain, Arm Pain Skin: Denies: Cyanosis, Jaundice, Mottled - Patient Data Vitals - Most Recent: Last Vital Signs Temp 36.4 C 08/01/20 12:00 Pulse 70 08/01/20 12:00 Resp 16 08/01/20 12:00 BP 140/70 08/01/20 12:00 Pulse Ox 94 L 08/01/20 12:00 Weight - Most Recent: 73.482 kg I&O - Last 24 Hours: Intake & Output 07/31/20 08/01/20 08/01/20 22:59 06:59 14:59 Intake Total 800 840 Output Total 1350 700 Balance -550 140 Lab Results Last 24 Hours: Laboratory Results - last 24 hr 07/31/20 08/01/20 08/01/20 Range/Units 17:46 05:55 05:55 WBC 4.50 (4.0-11.0) K/uL RBC 4.80 (4.30-5.90) M/uL Hgb 13.8 (12.0-16.0) g/dL Hct 41.6 (36.0-46.0) % MCV 86.7 (80.0-98.0) fL MCH 28.8 (27.0-32.0) pg MCHC 33.2 (31.0-37.0) g/dL RDW Std Deviation 41.5 (28.0-62.0) fl RDW Coeff of Masoud 13 (11.0-15.0) % Plt Count 308 (150-400) K/uL MPV 9.40 (7.40-12.00) fL Add Manual Diff YES Neutrophils % (Manual) 58 (48.0-80.0) % Lymphocytes % (Manual) 30 (16.0-40.0) % Monocytes % (Manual) 12 (0.0-15.0) % Nucleated RBC % 0.0 /100WBC Absolute Seg Neuts 2.6 (1.4-5.7) Lymphocytes # (Manual) 1.4 (0.6-2.4) Monocytes # (Manual) 0.5 (0.0-0.8) Nucleated RBCs # 0 K/uL Sodium 139 (136-145) mmol/L Potassium 3.3 L (3.5-5.1) mmol/L Chloride 103 (98-107) mmol/L Carbon Dioxide 24.6 (21.0-32.0) mmol/L BUN 23 H (7.0-18.0) mg/dL Creatinine 0.7 (0.6-1.0) mg/dL Est Cr Clr Drug Dosing 63.63 mL/min Estimated GFR (MDRD) > 60.0 ml/min Glucose 207 H (74-106) mg/dL POC Glucose 282 H (60-110) mg/dL Calcium 8.3 L (8.5-10.1) mg/dL Phosphorus 2.4 L (2.6-4.7) mg/dL Magnesium 1.8 (1.8-2.4) mg/dL 08/01/20 08/01/20 Range/Units 07:55 12:46 WBC (4.0-11.0) K/uL RBC (4.30-5.90) M/uL Hgb (12.0-16.0) g/dL Hct (36.0-46.0) % MCV (80.0-98.0) fL MCH (27.0-32.0) pg MCHC (31.0-37.0) g/dL RDW Std Deviation (28.0-62.0) fl RDW Coeff of Masoud (11.0-15.0) % Plt Count (150-400) K/uL MPV (7.40-12.00) fL Add Manual Diff Neutrophils % (Manual) (48.0-80.0) % Lymphocytes % (Manual) (16.0-40.0) % Monocytes % (Manual) (0.0-15.0) % Nucleated RBC % /100WBC Absolute Seg Neuts (1.4-5.7) Lymphocytes # (Manual) (0.6-2.4) Monocytes # (Manual) (0.0-0.8) Nucleated RBCs # K/uL Sodium (136-145) mmol/L Potassium (3.5-5.1) mmol/L Chloride (98-107) mmol/L Carbon Dioxide (21.0-32.0) mmol/L BUN (7.0-18.0) mg/dL Creatinine (0.6-1.0) mg/dL Est Cr Clr Drug Dosing mL/min Estimated GFR (MDRD) ml/min Glucose (74-106) mg/dL POC Glucose 180 H 299 H (60-110) mg/dL Calcium (8.5-10.1) mg/dL Phosphorus (2.6-4.7) mg/dL Magnesium (1.8-2.4) mg/dL Med Orders - Current: Current Medications Acetaminophen (Tylenol) 650 mg PO Q4H PRN PRN Reason: Pain (Mild 1-3)/fever Last Admin: 07/29/20 21:27 Dose: 650 mg Documented by: Albuterol/Ipratropium (Combivent Respimat) 0 gm INH Q4H PRN PRN Reason: Dyspnea Last Admin: 08/01/20 11:28 Dose: 1 puff Documented by: Atorvastatin Calcium (Lipitor) 20 mg PO BEDTIME [facility] Last Admin: 07/31/20 20:33 Dose: 20 mg Documented by: Azithromycin (Zithromax) 500 mg PO Q24H [facility] Last Admin: 07/31/20 13:25 Dose: 500 mg Documented by: Dexamethasone (Dexamethasone) 6 mg PO DAILY [facility] Last Admin: 08/01/20 09:05 Dose: 6 mg Documented by: Enoxaparin Sodium (Lovenox) 40 mg SUBCUT Q12HR [facility] Last Admin: 08/01/20 09:08 Dose: 40 mg Documented by: Remdesivir 100 mg/ Sodium (Chloride) 100 mls @ 100 mls/hr IV Q24H [facility] Stop: 08/02/20 00:59 Last Admin: 08/01/20 00:21 Dose: 100 mls/hr Documented by: Insulin Aspart (Novolog) 0 unit SUBCUT TIDAC [facility]; Protocol Last Admin: 08/01/20 08:59 Dose: 1 units Documented by: Levothyroxine Sodium (Levothyroxine) 75 mcg PO DAILY [facility] Last Admin: 08/01/20 09:06 Dose: 75 mcg Documented by: Losartan Potassium (Cozaar) 25 mg PO DAILY [facility] Last Admin: 08/01/20 09:07 Dose: 25 mg Documented by: Ondansetron HCl (Zofran Odt) 4 mg PO Q6H PRN PRN Reason: Vomiting Last Admin: 07/29/20 21:28 Dose: 4 mg Documented by: Sodium Chloride (Saline Flush) 10 ml FLUSH ASDIRECTED PRN PRN Reason: Keep Vein Open Last Admin: 07/28/20 18:15 Dose: 10 ml Documented by: Sodium Chloride (Saline Flush) 2.5 ml FLUSH ASDIRECTED PRN PRN Reason: Keep Vein Open Last Admin: 07/30/20 04:27 Dose: 2.5 ml Documented by: Discontinued Medications Diphenhydramine HCl (Benadryl) 50 mg IVPUSH ONETIME ONE Stop: 07/28/20 17:35 Last Admin: 07/28/20 18:14 Dose: 50 mg Documented by: Enoxaparin Sodium (Lovenox) 40 mg SUBCUT 07/29/20@1300 [facility] Stop: 07/29/20 13:01 Last Admin: 07/29/20 13:27 Dose: 40 mg Documented by: Famotidine (Pepcid) 20 mg IVPUSH ONETIME ONE Stop: 07/28/20 17:35 Last Admin: 07/28/20 18:14 Dose: 20 mg Documented by: Furosemide (Lasix) 20 mg IVPUSH NOW ONE Stop: 07/31/20 12:30 Last Admin: 07/31/20 13:23 Dose: 20 mg Documented by: Heparin Sodium (Porcine) (Heparin Sodium) 2,500 units IVPUSH .BOLUS ONE Stop: 07/28/20 22:44 Last Admin: 07/29/20 01:12 Dose: Not Given Documented by: Heparin Sodium (Porcine) (Heparin Sodium) 5,000 units IVPUSH .BOLUS ONE Stop: 07/28/20 23:33 Last Admin: 07/28/20 23:59 Dose: 5,000 units Documented by: Hydrocortisone Sodium Succinate (Solu-Cortef) 100 mg IVPUSH ONETIME ONE Stop: 07/28/20 17:34 Last Admin: 07/28/20 18:14 Dose: 100 mg Documented by: Heparin Sodium/Sodium Chloride (Heparin-1/2ns 25,000 Units/500) 25,000 unit in 500 mls @ 26.454 mls/hr IV TITRATE [facility]; Protocol Last Titration: 07/29/20 10:02 Dose: 0 units/kg/hr, 0 mls/hr Documented by: Remdesivir 200 mg/ Sodium (Chloride) 250 mls @ 250 mls/hr IV ONETIME ONE Stop: 07/28/20 23:38 Last Admin: 07/28/20 23:59 Dose: 250 mls/hr Documented by: Iopamidol (Isovue Multipack-370 (76%)) 75 ml IVPUSH ONETIME STA Stop: 07/28/20 18:59 Last Admin: 07/28/20 18:59 Dose: 75 ml Documented by: Potassium Chloride (Potassium Chloride) 40 meq PO ONETIME ONE Stop: 07/31/20 12:24 Last Admin: 07/31/20 13:21 Dose: 40 meq Documented by: Potassium Chloride (Potassium Chloride) 40 meq PO ONETIME ONE Stop: 08/01/20 10:07 Last Admin: 08/01/20 11:20 Dose: 40 meq Documented by: Prochlorperazine Edisylate (Compazine) 10 mg IVPUSH ONETIME ONE Stop: 07/28/20 21:01 Last Admin: 07/28/20 21:30 Dose: 10 mg Documented by: Sodium Phosphate (Neutra-Phos) 250 mg PO ONETIME ONE Stop: 07/31/20 12:24 Last Admin: 07/31/20 13:21 Dose: 250 mg Documented by: - Exam Quality Assessment: Supplemental Oxygen General: Alert, Oriented, Cooperative, No Acute Distress Lungs: Normal Respiratory Effort, Crackles, Rales Cardiovascular: Regular Rate, Regular Rhythm, No Murmurs GI/Abdominal Exam: Normal Bowel Sounds, Soft, Non-Tender Sepsis Event Note - Evaluation Sepsis Screening Result: No Definite Risk - Focused Exam Vital Signs: Vital Signs Temp Pulse Resp BP BP Pulse Ox 08/01/20 12:00 36.4 C 70 16 140/70 94 L 08/01/20 09:07 135/68 08/01/20 08:00 36.3 C 71 16 135/68 91 L 08/01/20 04:35 36.4 C 57 L 15 132/67 93 L - Problem List & Annotations (1) COVID-19 SNOMED Code(s): 362704950 Code(s): U07.1 - COVID-19 Status: Acute Current Visit: Yes (2) Pneumonia due to COVID-19 virus SNOMED Code(s): 847278637803136057 Code(s): U07.1 - COVID-19; J12.89 - OTHER VIRAL PNEUMONIA Status: Acute Current Visit: No - Problem List Review Problem List Initiated/Reviewed/Updated: Yes - Plan Plan:: 70 yo female admitted for COVID pneumonia COVID-19: Treating with Remdesivir, dexamethasone, and lovenox 40mg BID. Wean of oxygen as able cont Azithromycin 1 time lasix IV again today
[2020-08-01] MEDS: atorvaSTATin 20 MG Tab PO SCH (21:04)
[2020-08-02] MEDS: Albuterol/Ipratropium 4 GM Inhalation Spray INH PRN ×2 (01:03→11:45)
[2020-08-02] MEDS: REMDESIVIR 100 MG in Sodium Chloride 0.9% 100 ML IV SCH (01:04)
[2020-08-02 06:37] LABS: BLOOD UREA NITROGEN,BUN 24 mg/dL (7.0-18.0); CARBON DIOXIDE,CO2 24.1 mmol/L (21.0-32.0); CHLORIDE,CL 101 mmol/L (98-107); GLUCOSE RANDOM 232 mg/dL (74-106); POTASSIUM,K 3.3 mmol/L (3.5-5.1); SODIUM,NA 136 mmol/L (136-145)
[2020-08-02] MEDS: Insulin Aspart 100 Units/ML 3 ML Pen SUBCUT SCH ×2 (08:20→12:40)
[2020-08-02] MEDS: Dexamethasone 4 MG Tab PO SCH (08:22)
[2020-08-02] MEDS: Levothyroxine 75 MCG Tab PO SCH (08:22)
[2020-08-02] MEDS: Losartan 50 MG Tab PO SCH (08:23)
[2020-08-02] MEDS: Enoxaparin 40 MG/0.4 ML Syringe SUBCUT SCH (08:59)
[2020-08-02] MEDS ORDERED: Furosemide 20 MG/2 ML VIAL IVPUSH ONE (11:39)
[2020-08-02] MEDS ORDERED: Potassium Chloride 20 MEQ Tab.ER PO ONE (11:40)
[2020-08-02] MEDS ORDERED: Phosphorus #1 250 MG Tab PO ONE (11:40)
--- NOTE | 2020-08-02 11:50 | PCM.DCSUM1 ---
Discharge Summary - Hospital Course HPI Initial Comments: 70 yo female with pmh of DM and HTN who presents with worsening shortness of breath, cough, nausea, and diarrhea. Patient tested positive for COVID a week ago. In the ED she was requiring 2 L NC to keep sats above 90%. Due to elevated D-dimer patient was started on Heparin drip. CT scan of chest was negative for PE but showed bilateral patchy infiltrates. patient was admitted for further care. Heparin gtt was stopped, intermediate dose Lovenox was started for DVT prophylaxis. Patient received Remdesivir and dexamethasone. Her oxygen requirement increased intermittently, she was encouraged to prone, he received IV Combivent, azithromycin and intermittent doses of IV lasix to keep her in negative fluid balance, over next few days her oxygen requirement improved, she was weaned off oxygen to RA , ambulated safely on RA, and was medically stable for dc. recommend to fu with her PCP upon dc. Diagnosis: Stroke: No - Discharge Data Discharge Date: 08/02/20 Discharge Disposition: Home, Self-Care 01 Condition: Stable - Referral to Home Health Primary Care Physician: Tha Brunner MD - Discharge Diagnosis/Problem(s) (1) COVID-19 SNOMED Code(s): 290559502 ICD Code: U07.1 - COVID-19 Status: Acute Current Visit: Yes (2) Pneumonia due to COVID-19 virus SNOMED Code(s): 921160232749218455 ICD Code: U07.1 - COVID-19; J12.89 - OTHER VIRAL PNEUMONIA Status: Acute Current Visit: No - Patient Instructions Diet: Heart Healthy Diet Activity: As Tolerated Driving: May Drive Today Showering/Bathing: May Shower Notify Provider of: Fever, Increased Pain, Swelling and Redness, Drainage, Nausea and/or Vomiting - Discharge Plan *PRESCRIPTION DRUG MONITORING PROGRAM REVIEWED*: Not Applicable *COPY OF PRESCRIPTION DRUG MONITORING REPORT IN PATIENT AR: Not Applicable Prescriptions/Med Rec: Albuterol/Ipratropium [Combivent Respimat] 1 puff INH Q4H PRN #1 inhaler PRN Reason: Dyspnea dexAMETHasone [Dexamethasone] 6 mg PO DAILY #5 tablet Azithromycin [Zithromax] 500 mg PO Q24H #3 tablet Home Medications: Home Meds Aspirin [Stephen Chewable Aspirin] 81 mg PO DAILY 04/23/14 [History] Levothyroxine 1 tab PO DAILY 04/23/14 [History] Losartan [Cozaar] 1 tab PO DAILY 04/23/14 [History] atorvaSTATin [Lipitor] 1 tab PO BEDTIME 04/23/14 [History] metFORMIN [Glucophage XR] 500 mg PO BIDM 04/23/14 [History] Empagliflozin/Linagliptin [Glyxambi 10 mg-5 mg Tablet] 1 tab PO DAILY 09/20/15 [History] Potassium Chloride 40 meq PO DAILY 5 Days #10 tab.er.prt 07/24/20 [Rx] Ondansetron [Zofran ODT] 4 mg PO Q6H PRN #10 tab.dis 07/27/20 [Rx] Albuterol/Ipratropium [Combivent Respimat] 1 puff INH Q4H PRN #1 inhaler 08/02/20 [Rx] Azithromycin [Zithromax] 500 mg PO Q24H #3 tablet 08/02/20 [Rx] dexAMETHasone [Dexamethasone] 6 mg PO DAILY #5 tablet 08/02/20 [Rx] Patient Handouts: Albuterol; Ipratropium respiratory inhalation spray (Combivent Respimat), COVID-19 Frequently Asked Questions, COVID-19, Azithromycin tablets, COVID-19: How to Protect Yourself and Others - CDC, Infection Prevention in the Home, Dexamethasone tablets, Prevent the Spread of COVID-19 if You Are Sick - CDC Referrals: Tha Brunner MD [Primary Care Provider] - 08/09/20 2:30 pm - Discharge Summary/Plan Comment DC Time >30 min.: No - Patient Data Vitals - Most Recent: Last Vital Signs Temp 36.6 C 08/02/20 08:17 Pulse 65 08/02/20 08:17 Resp 18 08/02/20 08:17 BP 129/64 08/02/20 08:23 Pulse Ox 92 L 08/02/20 08:17 Weight - Most Recent: 73.482 kg I&O - Last 24 hours: Intake & Output 08/01/20 08/02/20 08/02/20 22:59 06:59 14:59 Intake Total 930 300 Output Total 1700 1200 Balance -770 -900 Lab Results - Last 24 hrs: Laboratory Results - last 24 hr 08/01/20 08/01/20 08/02/20 Range/Units 12:46 17:55 06:00 WBC 5.76 (4.0-11.0) K/uL RBC 5.03 (4.30-5.90) M/uL Hgb 14.5 (12.0-16.0) g/dL Hct 43.2 (36.0-46.0) % MCV 85.9 (80.0-98.0) fL MCH 28.8 (27.0-32.0) pg MCHC 33.6 (31.0-37.0) g/dL RDW Std Deviation 40.4 (28.0-62.0) fl RDW Coeff of Masoud 13 (11.0-15.0) % Plt Count 358 (150-400) K/uL MPV 9.50 (7.40-12.00) fL Add Manual Diff YES Neutrophils % (Manual) 53 (48.0-80.0) % Lymphocytes % (Manual) 33 (16.0-40.0) % Monocytes % (Manual) 13 (0.0-15.0) % Eosinophils % (Manual) 1 (0.0-7.0) % Nucleated RBC % 0.0 /100WBC Absolute Seg Neuts 3.1 (1.4-5.7) Lymphocytes # (Manual) 1.9 (0.6-2.4) Monocytes # (Manual) 0.7 (0.0-0.8) Eosinophils # (Manual) 0.1 (0.0-0.7) Nucleated RBCs # 0 K/uL Sodium (136-145) mmol/L Potassium (3.5-5.1) mmol/L Chloride (98-107) mmol/L Carbon Dioxide (21.0-32.0) mmol/L BUN (7.0-18.0) mg/dL Creatinine (0.6-1.0) mg/dL Est Cr Clr Drug Dosing mL/min Estimated GFR (MDRD) ml/min Glucose (74-106) mg/dL POC Glucose 299 H 319 H (60-110) mg/dL Calcium (8.5-10.1) mg/dL Phosphorus (2.6-4.7) mg/dL Magnesium (1.8-2.4) mg/dL 08/02/20 08/02/20 Range/Units 06:00 06:34 WBC (4.0-11.0) K/uL RBC (4.30-5.90) M/uL Hgb (12.0-16.0) g/dL Hct (36.0-46.0) % MCV (80.0-98.0) fL MCH (27.0-32.0) pg MCHC (31.0-37.0) g/dL RDW Std Deviation (28.0-62.0) fl RDW Coeff of Masoud (11.0-15.0) % Plt Count (150-400) K/uL MPV (7.40-12.00) fL Add Manual Diff Neutrophils % (Manual) (48.0-80.0) % Lymphocytes % (Manual) (16.0-40.0) % Monocytes % (Manual) (0.0-15.0) % Eosinophils % (Manual) (0.0-7.0) % Nucleated RBC % /100WBC Absolute Seg Neuts (1.4-5.7) Lymphocytes # (Manual) (0.6-2.4) Monocytes # (Manual) (0.0-0.8) Eosinophils # (Manual) (0.0-0.7) Nucleated RBCs # K/uL Sodium 136 (136-145) mmol/L Potassium 3.3 L (3.5-5.1) mmol/L Chloride 101 (98-107) mmol/L Carbon Dioxide 24.1 (21.0-32.0) mmol/L BUN 24 H (7.0-18.0) mg/dL Creatinine 0.8 (0.6-1.0) mg/dL Est Cr Clr Drug Dosing 55.68 mL/min Estimated GFR (MDRD) > 60.0 ml/min Glucose 232 H (74-106) mg/dL POC Glucose 203 H (60-110) mg/dL Calcium 8.4 L (8.5-10.1) mg/dL Phosphorus 2.5 L (2.6-4.7) mg/dL Magnesium 1.9 (1.8-2.4) mg/dL Med Orders - Current: Current Medications Acetaminophen (Tylenol) 650 mg PO Q4H PRN PRN Reason: Pain (Mild 1-3)/fever Last Admin: 07/29/20 21:27 Dose: 650 mg Documented by: Albuterol/Ipratropium (Combivent Respimat) 0 gm INH Q4H PRN PRN Reason: Dyspnea Last Admin: 08/02/20 11:45 Dose: 1 puff Documented by: Atorvastatin Calcium (Lipitor) 20 mg PO BEDTIME [facility] Last Admin: 08/01/20 21:04 Dose: 20 mg Documented by: Azithromycin (Zithromax) 500 mg PO Q24H [facility] Last Admin: 08/01/20 12:51 Dose: 500 mg Documented by: Dexamethasone (Dexamethasone) 6 mg PO DAILY [facility] Last Admin: 08/02/20 08:22 Dose: 6 mg Documented by: Enoxaparin Sodium (Lovenox) 40 mg SUBCUT Q12HR [facility] Last Admin: 08/02/20 08:59 Dose: 40 mg Documented by: Insulin Aspart (Novolog) 0 unit SUBCUT TIDAC [facility]; Protocol Last Admin: 08/02/20 08:20 Dose: 2 units Documented by: Levothyroxine Sodium (Levothyroxine) 75 mcg PO DAILY [facility] Last Admin: 08/02/20 08:22 Dose: 75 mcg Documented by: Losartan Potassium (Cozaar) 25 mg PO DAILY [facility] Last Admin: 08/02/20 08:23 Dose: 25 mg Documented by: Ondansetron HCl (Zofran Odt) 4 mg PO Q6H PRN PRN Reason: Vomiting Last Admin: 07/29/20 21:28 Dose: 4 mg Documented by: Sodium Chloride (Saline Flush) 10 ml FLUSH ASDIRECTED PRN PRN Reason: Keep Vein Open Last Admin: 07/28/20 18:15 Dose: 10 ml Documented by: Sodium Chloride (Saline Flush) 2.5 ml FLUSH ASDIRECTED PRN PRN Reason: Keep Vein Open Last Admin: 07/30/20 04:27 Dose: 2.5 ml Documented by: Discontinued Medications Diphenhydramine HCl (Benadryl) 50 mg IVPUSH ONETIME ONE Stop: 07/28/20 17:35 Last Admin: 07/28/20 18:14 Dose: 50 mg Documented by: Enoxaparin Sodium (Lovenox) 40 mg SUBCUT 07/29/20@1300 DORIS Stop: 07/29/20 13:01 Last Admin: 07/29/20 13:27 Dose: 40 mg Documented by: Famotidine (Pepcid) 20 mg IVPUSH ONETIME ONE Stop: 07/28/20 17:35 Last Admin: 07/28/20 18:14 Dose: 20 mg Documented by: Furosemide (Lasix) 20 mg IVPUSH NOW ONE Stop: 07/31/20 12:30 Last Admin: 07/31/20 13:23 Dose: 20 mg Documented by: Furosemide (Lasix) 20 mg IVPUSH NOW ONE Stop: 08/01/20 12:54 Last Admin: 08/01/20 13:06 Dose: 20 mg Documented by: Furosemide (Lasix) 20 mg IVPUSH NOW ONE Stop: 08/02/20 11:40 Heparin Sodium (Porcine) (Heparin Sodium) 2,500 units IVPUSH .BOLUS ONE Stop: 07/28/20 22:44 Last Admin: 07/29/20 01:12 Dose: Not Given Documented by: Heparin Sodium (Porcine) (Heparin Sodium) 5,000 units IVPUSH .BOLUS ONE Stop: 07/28/20 23:33 Last Admin: 07/28/20 23:59 Dose: 5,000 units Documented by: Hydrocortisone Sodium Succinate (Solu-Cortef) 100 mg IVPUSH ONETIME ONE Stop: 07/28/20 17:34 Last Admin: 07/28/20 18:14 Dose: 100 mg Documented by: Heparin Sodium/Sodium Chloride (Heparin-1/2ns 25,000 Units/500) 25,000 unit in 500 mls @ 26.454 mls/hr IV TITRATE DORIS; Protocol Last Titration: 07/29/20 10:02 Dose: 0 units/kg/hr, 0 mls/hr Documented by: Remdesivir 200 mg/ Sodium (Chloride) 250 mls @ 250 mls/hr IV ONETIME ONE Stop: 07/28/20 23:38 Last Admin: 07/28/20 23:59 Dose: 250 mls/hr Documented by: Remdesivir 100 mg/ Sodium (Chloride) 100 mls @ 100 mls/hr IV Q24H DORIS Stop: 08/02/20 00:59 Last Admin: 08/02/20 01:04 Dose: 100 mls/hr Documented by: Iopamidol (Isovue Multipack-370 (76%)) 75 ml IVPUSH ONETIME STA Stop: 07/28/20 18:59 Last Admin: 07/28/20 18:59 Dose: 75 ml Documented by: Potassium Chloride (Potassium Chloride) 40 meq PO ONETIME ONE Stop: 07/31/20 12:24 Last Admin: 07/31/20 13:21 Dose: 40 meq Documented by: Potassium Chloride (Potassium Chloride) 40 meq PO ONETIME ONE Stop: 08/01/20 10:07 Last Admin: 08/01/20 11:20 Dose: 40 meq Documented by: Potassium Chloride (Klor-Con M20) 40 meq PO ONETIME ONE Stop: 08/02/20 11:41 Prochlorperazine Edisylate (Compazine) 10 mg IVPUSH ONETIME ONE Stop: 07/28/20 21:01 Last Admin: 07/28/20 21:30 Dose: 10 mg Documented by: Sodium Phosphate (Neutra-Phos) 250 mg PO ONETIME ONE Stop: 07/31/20 12:24 Last Admin: 07/31/20 13:21 Dose: 250 mg Documented by: Sodium Phosphate (Neutra-Phos) 250 mg PO ONETIME ONE Stop: 08/02/20 11:41
[2020-08-02 12:36] VITALS: BP 121/75; PULSE 87
[2020-08-02] MEDS: Azithromycin 250 MG Tab PO SCH (12:46)
== END 2020-08-02 13:00 | disposition home or self-care (01) | DRG 177 ==
LOC: MW.ED 17:27 → MW.MS 21:19
PROVIDERS: ADMIT Internal Medicine; ATTEND Internal Medicine
PROC: XW033E5 Introduction of Remdesivir Anti-infective into Peripheral Vein, Percutaneous Approach, New Technology Group 5 (ICD-10-PCS; principal; 2020-07-28)
PROC: 8E0ZXY6 Isolation (ICD-10-PCS; 2020-07-28)
DX: U07.1 COVID-19 (principal); J12.89 Other viral pneumonia; J96.00 Acute respiratory failure, unspecified whether with hypoxia or hypercapnia; J96.01 Acute respiratory failure with hypoxia; R79.1 Abnormal coagulation profile; Z88.5 Allergy status to narcotic agent; Z91.041 Radiographic dye allergy status; Z79.84 Long term (current) use of oral hypoglycemic drugs; Z79.82 Long term (current) use of aspirin; Z79.890 Hormone replacement therapy; E03.9 Hypothyroidism, unspecified; Z79.899 Other long term (current) drug therapy; I10 Essential (primary) hypertension; E78.00 Pure hypercholesterolemia, unspecified; E11.9 Type 2 diabetes mellitus without complications
CPT/HCPCS: 36415; 71275; 80053; 84484; 85025; 85379; 85610; 85730; 96374; 96375; 99291; J1200; J1720; J3490; Q9967; U0002; 80048; 82962; 83735; 84100; 99222; 99231; 99238; A9270-GY; J0780; J1644; J1650; J1815-GY; J1940; J7050; J8540

== ENCOUNTER 2021-04-18 07:32 | Day surgery (SDC) | payer BC ==
[~2021-04-18 07:32] MED LIST: Albuterol 0.083% 2.5 MG/3 ML Neb Soln NEB PRN; HYDROmorphone 2 MG/ML Syringe IVPUSH PRN; Lactated Ringers 1,000 ML IV SCH; Metoclopramide 10 MG/2 ML SDV IVPUSH PRN; Ondansetron 4 MG/2 ML SDV IVPUSH PRN; Sodium Chloride 0.9% 10 ML SDV IV PRN; Sodium Chloride 0.9% 10 ML Syringe FLUSH PRN; Sodium Chloride 0.9% 2.5 ML Syringe FLUSH PRN; ceFAZolin 2 GM in Premix Bag 1 BAG IV ONE; fentaNYL 100 MCG/2 ML SDV IVPUSH PRN
[2021-04-18] MEDS ORDERED: Ondansetron 4 MG/2 ML SDV ONE ×2 (08:24)
[2021-04-18] MEDS ORDERED: fentaNYL 100 MCG/2 ML SDV ONE (08:24)
[2021-04-18] MEDS ORDERED: Sodium Chloride 0.9% 20 ML ONE ×2 (08:24→08:46)
[2021-04-18] MEDS ORDERED: propofoL 100 ML ONE (08:25)
[2021-04-18] MEDS ORDERED: Bupivacaine 0.5% 10 ML SDV ONE (08:27)
[2021-04-18] MEDS ORDERED: Iopamidol 408 MG/ML 20 ML SDV ONE (08:27)
[2021-04-18] MEDS ORDERED: Lidocaine 1% 20 ML MDV ONE (08:27)
[2021-04-18] MEDS ORDERED: Heparin Sodium 100 Units/ML 3 ML Syringe ONE (08:27)
[2021-04-18] MEDS ORDERED: Octyl 2-Cyanoacrylate 1 Tube ONE (08:27)
--- NOTE | 2021-04-18 08:29 | PCM.PREANE ---
Preanesthetic Assessment - Anesthesia/Transfusion/Family Hx Anesthesia History: Prior Anesthesia Without Reaction Other Type of Anesthesia Reaction Comment: STATES SHE IS HARD TO WAKE UP AFTER ANESTHESIA Family History of Anesthesia Reaction: No Transfusion History: No Prior Transfusion(s) - Review of Systems General: No Symptoms Pulmonary: No Symptoms Cardiovascular: No Symptoms Gastrointestinal: No Symptoms Neurological: No Symptoms Other: Reports: Depression, Anxiety - Physical Assessment NPO Status Date: 04/18/21 NPO Status Time: 00:00 Vital Signs: Last Vital Signs Temp 97.7 F 04/18/21 07:30 Pulse 91 04/18/21 07:30 Resp 15 04/18/21 07:30 BP 104/64 04/18/21 07:30 Pulse Ox 96 04/18/21 07:30 Height: 5 ft 3 in Weight: 148 lb ASA Class: 3 Mental Status: Alert & Oriented x3 Airway Class: Mallampati = 2 Dentition: Reports: Normal Dentition Thyro-Mental Finger Breadths: 3 Mouth Opening Finger Breadths: 3 ROM/Head Extension: Full Lungs: Clear to Auscultation, Normal Respiratory Effort Cardiovascular: Regular Rate, Regular Rhythm - Lab Values: Laboratory Last Values POC Glucose 130 mg/dL (70-99) H 04/18/21 07:58 - Allergies Allergies/Adverse Reactions: Allergies Allergy/AdvReac Type Severity Reaction Status Date / Time codeine Allergy Cannot Verified 04/14/21 09:[address] CONTRAST DYE Allergy Difficulty Uncoded 07/29/20 07:01 Breathing - Acknowledgements Anesthesia Type Planned: General Anesthesia Pt an Appropriate Candidate for the Planned Anesthesia: Yes Alternatives and Risks of Anesthesia Discussed w Pt/Guardian: Yes Pt/Guardian Understands and Agrees with Anesthesia Plan: Yes PreAnesthesia Questionnaire HEENT History: Reports: Other (See Below) Other HEENT History: wears glasses Cardiovascular History: Reports: High Cholesterol, Hypertension Respiratory History: Reports: None Gastrointestinal History: Reports: None Genitourinary History: Reports: None [employer] History: Reports: Musculoskeletal History: Reports: Fracture, Osteoarthritis Other Musculoskeletal History: hx fx arm and ankle Neurological History: Reports: None Psychiatric History: Reports: None Endocrine/Metabolic History: Reports: Diabetes, Type II, Hypothyroidism Hematologic History: Reports: None Immunologic History: Reports: None Oncologic (Cancer) History: Reports: Breast Dermatologic History: Reports: None - Infectious Disease History Infectious Disease History: Reports: Chicken Pox - Past Surgical History Head Surgeries/Procedures: Reports: None HEENT Surgical History: Reports: Tonsillectomy Cardiovascular Surgical History: Reports: None Respiratory Surgical History: Reports: None GI Surgical History: Reports: Appendectomy Female Surgical History: Reports: Breast Biopsy, Breast Implant, Hysterectomy, Mastectomy, Salpingo-Oophorectomy, Other (See Below) Other Female Surgeries/Procedures: alyssa mastectomy with reconstruction 03/29/21 Endocrine Surgical History: Reports: None Neurological Surgical History: Reports: None Musculoskeletal Surgical History: Reports: Arthroscopic Knee Oncologic Surgical History: Reports: Biopsy of Breast, Mastectomy Dermatological Surgical History: Reports: Skin Biopsy, Other (See Below) - SUBSTANCE USE Tobacco Use Status *Q: Never Tobacco User Recreational Drug Use History: No - HOME MEDS Home Medications: Home Meds atorvaSTATin [Lipitor] 20 mg PO BEDTIME 04/23/14 [History] Empagliflozin/Linagliptin [Glyxambi 25 mg-5 mg Tablet] 1 tab PO DAILY 04/14/21 [History] Levothyroxine Sodium 137 mcg PO DAILY 04/14/21 [History] Losartan/Hydrochlorothiazide [Losartan-HCTZ 100-25 MG] 1 tab PO DAILY 04/14/21 [History] Optivite 1 tab PO DAILY 04/14/21 [History] Semaglutide [Rybelsus] 3 mg PO DAILY 04/14/21 [History] metFORMIN HCl [Metformin HCl] 1,000 mg PO BIDMEALS 04/14/21 [History] - CURRENT (IN HOUSE) MEDS Current Meds: Current Medications Albuterol (Albuterol 0.083% 2.5 Mg/3 Ml Neb Soln) 2.5 mg NEB ONETIME PRN PRN Reason: Wheezing Droperidol (Droperidol 5 Mg/2 Ml Sdv) 0.625 mg IVPUSH ONETIME PRN PRN Reason: Nausea/Vomiting Fentanyl (Fentanyl 100 Mcg/2 Ml Sdv) 50 mcg IVPUSH Q5M PRN PRN Reason: Pain (mild 1-3) Hydromorphone HCl (Hydromorphone 2 Mg/Ml Syringe) 0.5 mg IVPUSH Q10M PRN PRN Reason: Pain (moderate 4-6) Lactated Ringer's (Ringers, Lactated) 1,000 mls @ 125 mls/hr IV ASDIRECTED DORIS Last Admin: 04/18/21 08:00 Dose: 125 mls/hr Documented by: Metoclopramide HCl (Metoclopramide 10 Mg/2 Ml Sdv) 10 mg IVPUSH ONETIME PRN PRN Reason: Nausea/Vomiting Ondansetron HCl (Ondansetron 4 Mg/2 Ml Sdv) 4 mg IVPUSH ONETIME PRN PRN Reason: Nausea/Vomiting Sodium Chloride (Sodium Chloride 0.9% 2.5 Ml Syringe) 2.5 ml FLUSH ASDIRECTED PRN PRN Reason: Keep Vein Open Sodium Chloride (Sodium Chloride 0.9% 10 Ml Sdv) 10 ml IV ASDIRECTED PRN PRN Reason: IV Use Sodium Chloride (Sodium Chloride 0.9% 10 Ml Syringe) 10 ml FLUSH ASDIRECTED PRN PRN Reason: Keep Vein Open Discontinued Medications Cefazolin Sodium/Dextrose 2 gm (/ Premix) 50 mls @ 100 mls/hr IV ONETIME ONE Stop: 04/15/21 18:33
[2021-04-18] MEDS ORDERED: ceFAZolin 1 GM Vial ONE ×2 (08:45)
--- NOTE | 2021-04-18 09:53 | PCM.POSTAN ---
POST ANESTHESIA ASSESSMENT - MENTAL STATUS Mental Status: Alert, Oriented - VITAL SIGNS Vital Signs: Last Vital Signs Temp 208.8 F H 04/18/21 09:39 Pulse 76 04/18/21 09:49 Resp 10 L 04/18/21 09:49 BP 120/60 04/18/21 09:49 Pulse Ox 94 L 04/18/21 09:49 - RESPIRATORY Respiratory Status: Respiratory Rate WNL, Airway Patent, O2 Saturation Stable - CARDIOVASCULAR CV Status: Pulse Rate WNL, Blood Pressure Stable - GASTROINTESTINAL GI Status: No Symptoms - POST OP HYDRATION Hydration Status: Adequate & Stable
--- NOTE | 2021-04-18 09:54 | PCM48HPAN ---
Post Anesthesia Note - EVALUATION WITHIN 48HRS OF ANESTHETIC Vital Signs in Normal Range: Yes Patient Participated in Evaluation: Yes Respiratory Function Stable: Yes Airway Patent: Yes Cardiovascular Function Stable: Yes Hydration Status Stable: Yes Pain Control Satisfactory: Yes Nausea and Vomiting Control Satisfactory: Yes Mental Status Recovered: Yes Vital Signs: Last Vital Signs Temp 208.8 F H 04/18/21 09:39 Pulse 76 04/18/21 09:49 Resp 10 L 04/18/21 09:49 BP 120/60 04/18/21 09:49 Pulse Ox 94 L 04/18/21 09:49
--- NOTE | 2021-04-18 09:57 | PCM.OPNOTE ---
- General Post-Op/Procedure Note Date of Surgery/Procedure: 04/18/21 Operative Procedure(s): Right internal jugular port a cath Findings: Right IJ port a cath placement Pre Op Diagnosis: Port a cath placement, breast cancer Post-Op Diagnosis: same Anesthesia Technique: General LMA, Local Primary Surgeon: Shyla Bar Fluid Replacement, Intraop: 900 EBL in mLs: 5 Condition: Good
--- NOTE | 2021-04-18 10:24 | CR ---
Indication: Port-A-Cath placement Comparison: Two view chest August 31, 2020 Technique: Single AP view chest Findings: There is hyperinflation and chronic interstitial changes. There is a right-sided Port-A-Cath with the tip in satisfactory position in the mid superior vena cava. There is no focal consolidation, effusion, or pneumothorax. The cardiomediastinal silhouette is within normal limits. Surgical clips are seen over the bilateral chest wall soft tissues. Otherwise the bony thorax is grossly intact. Impression: Hyperinflation and chronic interstitial changes without acute cardiopulmonary abnormality. Right-sided Port-A-Cath placement in satisfactory position. Dictated by Mickey Marquez MD @ 04/18/2021 10:22:[address] Mickey Marquez @ Apr 18 2021 10:22AM
[2021-04-18 10:42] VITALS: BP 112/69; PULSE 61
--- NOTE | 2021-04-18 12:11 | OR ---
SURGEON: SHYLA BAR MD DATE OF PROCEDURE: 04/18/2021 PREOPERATIVE DIAGNOSES: Breast cancer, Port-A-Cath placement. POSTOPERATIVE DIAGNOSES: Breast cancer, Port-A-Cath placement. PROCEDURE PERFORMED: Right internal jugular Port-A-Cath placement. PRIMARY SURGEON: Shyla Bar MD ANESTHESIA: General LMA, local. FLUIDS: 900 mL of crystalloid. ESTIMATED BLOOD LOSS: 5 mL. FINDINGS: Right internal jugular Port-A-Cath placement. COMPLICATIONS: None. INDICATIONS: The patient is a 71-year-old female who was recently diagnosed with breast cancer. She is in need of a Port-A-Cath for chemotherapy. I explained the procedure, expected perioperative course, and the risks. The patient verbalized understanding and wishes to proceed. PROCEDURE IN DETAIL: The patient was brought into the OR and placed on the OR table in supine position. A time-out was completed verifying the patient's name, age, date of , allergies, and procedure to be performed. General LMA anesthesia was induced. An ultrasound was used to verify the vascular anatomy of the right side of the neck. The neck and chest were then prepped and draped in usual standard fashion. Both arms were tucked to the patient's side and a shoulder roll placed under the patient's shoulders. The patient was placed into Trendelenburg position. Using a sterile ultrasound probe, I reidentified the vascular anatomy of the right side of the neck. I anesthetized the area overlying the right internal jugular vein and right anterior chest wall with both 0.5% Marcaine plain and 1% lidocaine plain. Using ultrasound guidance, a relay assembler needle was placed into the right internal jugular vein under direct visualization. A good return of venous blood was noted. A guidewire was placed down the needle into the chest wall. C-arm was brought in, and the guidewire was directed into the superior vena cava. It was then secured to the drapes. The finding needle was removed. I then turned my attention to the right anterior chest wall. I chose a spot 2 fingerbreadths below the medial clavicular line. A 15 blade was used to make a 4 cm incision over this area. Cautery was used to dissect down into the subcutaneous fat layer. I then created a subcutaneous pocket at this level. A tunneling device was then used to tunnel the catheter tubing from the chest wall site up to the guidewire insertion site on the neck. A vascular sheath and dilator were placed over the guidewire and used to dilate the vascular tract under fluoroscopic guidance. The dilator and guidewire were removed. The catheter tubing was placed down the vascular sheath and into the superior vena cava. The vascular sheath was peeled away. Using fluoroscopy, I pulled the catheter tubing back into the superior vena cava. I accessed the distal end of the catheter tubing, and a good return of venous blood was noted. The tubing was then flushed with injectable saline. The catheter tubing was then trimmed to 25 cm and placed on the Port-A-Cath device. The port was then placed into the chest wall pocket and secured on either side with 2-0 Prolene sutures. I accessed the port using a Gonzales needle. Good return of venous blood was noted. I then locked the catheter with 3 mL of heparinized saline. The anterior chest wall site was closed with interrupted 3- 0 Vicryl in the subcutaneous fat layer and the skin was closed with a running 4- 0 Monocryl stitch. The insertion site at the neck was closed with interrupted 4- 0 Monocryl suture. Dermabond and sterile dressings were applied. The patient tolerated the procedure well, was taken to PACU in stable condition. A postoperative chest x-ray was taken, which showed no acute complications. The patient tolerated the procedure well and was extubated without complication. All counts were complete and correct at the end of the case. NEVILLE GLEASON /[id number]
--- NOTE | 2021-04-18 12:37 | CR ---
Indication: Right-sided Port-A-Cath placement Technique: Intra op fluoroscopy Findings: Intra op fluoroscopy provided for right-sided cord catheter port placement Dictated by Mai Doll MD @ 04/18/2021 12:35:[address] Mai Doll @ Apr 18 2021 12:35PM
== END 2021-04-18 10:45 | disposition home or self-care (01) ==
LOC: MW.SDS 07:32
PROVIDERS: ATTEND Surgery
DX: Z45.2 Encounter for adjustment and management of vascular access device (principal); C50.919 Malignant neoplasm of unspecified site of unspecified female breast; E11.9 Type 2 diabetes mellitus without complications; E78.5 Hyperlipidemia, unspecified; I10 Essential (primary) hypertension; E03.9 Hypothyroidism, unspecified; E78.00 Pure hypercholesterolemia, unspecified; Z90.13 Acquired absence of bilateral breasts and nipples; M19.90 Unspecified osteoarthritis, unspecified site; E66.3 Overweight; Z88.6 Allergy status to analgesic agent; Z91.041 Radiographic dye allergy status; Z79.82 Long term (current) use of aspirin; Z79.890 Hormone replacement therapy; Z79.84 Long term (current) use of oral hypoglycemic drugs; Z79.899 Other long term (current) drug therapy
CPT/HCPCS: 36561; 71045; 76000; 82947; A9270; C1788; J0690; J1642; J2405; J2704; J3010; J3490; J7120; 00532; Q9966

== ENCOUNTER 2022-09-06 16:23 | Inpatient (IN) | payer BC, MEDICARE ==
[2022-09-06] MEDS ORDERED: Sodium Chloride 0.9% 1,000 ML IV ONE (16:46)
[2022-09-06 18:16] LABS: BLOOD UREA NITROGEN,BUN 49 mg/dL (7.0-18.0); CARBON DIOXIDE,CO2 24.2 mmol/L (21.0-32.0); CHLORIDE,CL 100 mmol/L (98-107); GLUCOSE RANDOM 140 mg/dL (74-106); LIPASE 245 U/L (73-393); POTASSIUM,K 3.7 mmol/L (3.5-5.1); SODIUM,NA 137 mmol/L (136-145)
[2022-09-06 18:26] LABS: ESTIMATED GFR 28 mL/min (>60)
[2022-09-07] MEDS ORDERED: Glucagon,Human Recombinant 1 MG Vial IM PRN (00:10)
[2022-09-07] MEDS ORDERED: 50% Dextrose in Water 50 ML Syringe IVPUSH PRN (00:10)
[2022-09-07] MEDS: Gabapentin 100 MG Cap PO SCH ×2 (00:27→20:38)
[2022-09-07] MEDS: Sodium Chloride 0.9% 1,000 ML IV SCH ×3 (00:27→19:22)
[2022-09-07 06:33] LABS: CARBON DIOXIDE,CO2 23.3 mmol/L (21.0-32.0); POTASSIUM,K 3.4 mmol/L (3.5-5.1)
[2022-09-07] MEDS ORDERED: Potassium Chloride 20 MEQ Tab.ER PO ONE (06:53)
[2022-09-07] MEDS ORDERED: Magnesium Sulfate/Water 4 GM in Premix Bag 1 BAG IV ONE (06:53)
[2022-09-07] MEDS: Fish Oil/Omega-3 Fatty Acids 1 Gm Cap PO SCH ×2 (08:01→20:38)
[2022-09-07] MEDS: Cholecalciferol (Vitamin D3) 25 MCG Tab PO SCH (08:01)
[2022-09-07] MEDS: Levothyroxine 125 MCG Tab PO SCH (08:01)
[2022-09-07] MEDS: Multivitamin Tab PO SCH (08:02)
[2022-09-07] MEDS: Insulin Aspart 100 Units/ML 3 ML Pen SUBCUT SCH ×3 (08:03→16:46)
[2022-09-07] MEDS ORDERED: Calcium Carbonate 500 MG Tablet PO SCH (09:00)
[2022-09-07] MEDS ORDERED: Anastrozole 1 MG Tab PO SCH (09:45)
[2022-09-07] MEDS: Anastrozole 1 MG Tab PO SCH (09:45)
[2022-09-07] MEDS: Vitamin E (dl-alpha-tocopherol acetate) 400 Unit Cap PO SCH (10:47)
[2022-09-07] MEDS ORDERED: diphenhydrAMINE 25 MG Cap PO ONE (11:05)
[2022-09-07] MEDS ORDERED: atorvaSTATin 20 MG Tab PO SCH (21:00)
[2022-09-07] MEDS ORDERED: diphenhydrAMINE 25 MG Cap PO PRN (22:46)
[2022-09-08] MEDS: Sodium Chloride 0.9% 1,000 ML IV SCH (02:51)
[2022-09-08] MEDS: Levothyroxine 125 MCG Tab PO SCH ×2 (06:21→06:47)
[2022-09-08 06:25] LABS: CARBON DIOXIDE,CO2 22.1 mmol/L (21.0-32.0); POTASSIUM,K 3.6 mmol/L (3.5-5.1)
[2022-09-08] MEDS ORDERED: Magnesium Sulfate/Water 4 GM in Premix Bag 1 BAG IV ONE (07:09)
[2022-09-08] MEDS: Insulin Aspart 100 Units/ML 3 ML Pen SUBCUT SCH (07:47)
[2022-09-08] MEDS: Fish Oil/Omega-3 Fatty Acids 1 Gm Cap PO SCH (09:05)
[2022-09-08] MEDS: Cholecalciferol (Vitamin D3) 25 MCG Tab PO SCH (09:05)
[2022-09-08] MEDS: Multivitamin Tab PO SCH (09:05)
[2022-09-08] MEDS: Anastrozole 1 MG Tab PO SCH (09:05)
[2022-09-08 11:13] VITALS: BP 131/60; PULSE 88
[2022-09-08] MEDS: Vitamin E (dl-alpha-tocopherol acetate) 400 Unit Cap PO SCH (11:22)
[2022-09-08] MEDS ORDERED: Heparin Sodium 100 Units/ML 3 ML Syringe FLUSH ONE (11:45)
== END 2022-09-08 11:40 | disposition home or self-care (01) | DRG 469 ==
LOC: MW.ED 16:23 → MW.MS 19:04 → OBSVTOIN 09-07 11:24 → MW.MS 09-07 17:57
PROVIDERS: ADMIT Internal Medicine; ATTEND Internal Medicine
DX: N17.9 Acute kidney failure, unspecified (principal); E87.6 Hypokalemia; E03.9 Hypothyroidism, unspecified; E78.00 Pure hypercholesterolemia, unspecified; I10 Essential (primary) hypertension; M19.90 Unspecified osteoarthritis, unspecified site; E86.0 Dehydration; E83.52 Hypercalcemia; Z20.822 Contact with and (suspected) exposure to COVID-19; Z88.5 Allergy status to narcotic agent; Z91.041 Radiographic dye allergy status; Z79.84 Long term (current) use of oral hypoglycemic drugs; Z79.899 Other long term (current) drug therapy; Z79.890 Hormone replacement therapy; Z86.16 Personal history of COVID-19; Z90.710 Acquired absence of both cervix and uterus; Z90.49 Acquired absence of other specified parts of digestive tract; Z90.10 Acquired absence of unspecified breast and nipple; Z87.891 Personal history of nicotine dependence
CPT/HCPCS: 36415; 71045; 71045-26; 74176; 74176-26; 80048; 80053; 81001; 82947; 83690; 83735; 84484; 85025; 86140; 87045; 87046; 87328; 87329; 87338; 87449; 87899; 93005; 96361; 96374; 96375; 99285-25; A9270-GY; J1642; J1815-GY; J3475; J7030; U0002

== ENCOUNTER 2023-01-25 11:05 | Day surgery (SDC) | payer BC ==
[~2023-01-25 11:05] MED LIST changes: -Albuterol 0.083% 2.5 MG/3 ML Neb Soln NEB PRN; -HYDROmorphone 2 MG/ML Syringe IVPUSH PRN; -Metoclopramide 10 MG/2 ML SDV IVPUSH PRN; -Ondansetron 4 MG/2 ML SDV IVPUSH PRN; -Sodium Chloride 0.9% 10 ML SDV IV PRN; +Sodium Chloride 0.9% 20 ML SDV IV PRN; -fentaNYL 100 MCG/2 ML SDV IVPUSH PRN
[2023-01-25] MEDS ORDERED: fentaNYL 50 MCG/ML SDV IVPUSH PRN (11:38)
[2023-01-25] MEDS ORDERED: Naloxone 0.4 MG/ML SDV IVPUSH PRN (11:38)
[2023-01-25] MEDS ORDERED: HYDROmorphone 1 MG/ML Syringe IVPUSH PRN (11:38)
[2023-01-25] MEDS ORDERED: Metoclopramide 10 MG/2 ML SDV IVPUSH PRN (11:38)
[2023-01-25] MEDS ORDERED: Ondansetron 4 MG/2 ML SDV IVPUSH PRN (11:38)
[2023-01-25] MEDS ORDERED: Albuterol 0.083% 2.5 MG/3 ML Neb Soln NEB PRN (11:38)
[2023-01-25] MEDS ORDERED: Morphine 2 MG/ML SYRINGE IVPUSH PRN (11:38)
[2023-01-25] MEDS ORDERED: Lidocaine 1% 20 ML MDV ONE (13:14)
[2023-01-25] MEDS ORDERED: Lidocaine 2% 5 ML SDV ONE (13:16)
[2023-01-25] MEDS ORDERED: Propofol 200 MG/20 ML SDV ONE (13:17)
[2023-01-25] MEDS ORDERED: fentaNYL 100 MCG/2 ML SDV ONE (13:17)
[2023-01-25 14:42] VITALS: BP 133/61; PULSE 72
== END 2023-01-25 14:35 | disposition home or self-care (01) ==
LOC: MW.SDS 11:05
PROVIDERS: ATTEND Surgery
DX: D22.4 Melanocytic nevi of scalp and neck (principal); Z45.2 Encounter for adjustment and management of vascular access device; E78.5 Hyperlipidemia, unspecified; E03.9 Hypothyroidism, unspecified; E11.40 Type 2 diabetes mellitus with diabetic neuropathy, unspecified; Z88.5 Allergy status to narcotic agent; Z91.041 Radiographic dye allergy status; Z79.84 Long term (current) use of oral hypoglycemic drugs; Z79.890 Hormone replacement therapy; Z79.899 Other long term (current) drug therapy
CPT/HCPCS: 11421; 36590; 82947; J2704; J3010; J7120; 00400; J3490

== ENCOUNTER 2025-06-29 10:44 | Emergency (ER) | payer BC ==
[2025-06-29 11:30] LABS: GLUCOSE,URINE NEGATIVE (NEGATIVE); OCCULT BLOOD,URINE NEGATIVE (NEGATIVE)
[2025-06-29] MEDS ORDERED: Sodium Chloride 0.9% 2.5 ML Syringe FLUSH PRN (11:34)
[2025-06-29] MEDS ORDERED: Sodium Chloride 0.9% 10 ML Syringe FLUSH PRN (11:34)
[2025-06-29 11:44] LABS: APPEARANCE,URINE HAZY
[2025-06-29 11:47] LABS: EPITHELIAL CELLS,URINE OCCASIONAL (NONE-FEW)
[2025-06-29] MEDS: cefTRIAXone 1 GM in Water For Injection, Sterile 10 ML IVPUSH ONE (11:48)
[2025-06-29 12:20] LABS: BASOPHILS ABSOLUTE AUTO 0.02 K/uL (0.00-0.20); BASOPHILS PERCENT AUTO 0.3 % (0.0-1.0); EOSINOPHILS ABSOLUTE AUTO 0.01 K/uL (0.00-0.45); EOSINOPHILS PERCENT AUTO 0.2 % (0.0-6.0); IMMATURE GRAN ABSOLUTE AUTO 0.01 K/uL (0.00-0.05); IMMATURE GRAN PERCENT AUTO 0.2 % (0.0-0.4); LYMPHOCYTES ABSOLUTE AUTO 0.88 K/uL (1.00-4.80); LYMPHOCYTES PERCENT AUTO 13.5 % (24.0-44.0); MEAN PLATELET VOLUME 9.5 fL (9.4-12.3); MONOCYTES ABSOLUTE AUTO 0.39 K/uL (0.00-0.80); MONOCYTES PERCENT AUTO 6.0 % (0.0-8.0); NEUTROPHILS ABSOLUTE AUTO 5.23 K/uL (1.80-7.70); NEUTROPHILS PERCENT AUTO 79.8 % (41.0-71.0); NRBC ABSOLUTE 0.00 K/uL (0.00-0.02); NRBC PERCENT 0.0 /100WBC (0.0-0.2); PLATELET COUNT,PLT 259 K/uL (150-400); RED BLOOD CELL COUNT 4.92 M/uL (4.10-5.30); WHITE BLOOD CELL COUNT,WBC 6.54 K/uL (3.9-11.3)
[2025-06-29] MEDS: Ondansetron 4 MG/2 ML SDV IVPUSH ONE (12:26)
[2025-06-29 12:46] LABS: A/G RATIO 1.1 (0.9-1.6); ALANINE AMINOTRANSFERASE,ALT 44.0 IU/L (14-63); ASPARTATE AMNIOTRANSFERASE,AST 39.0 IU/L (15-37); BILIRUBIN TOTAL 1.1 mg/dL (0.2-1.0); BLOOD UREA NITROGEN,BUN 11.0 mg/dL (7.0-18.0); CARBON DIOXIDE,CO2 28.4 mmol/L (21.0-32.0); CHLORIDE,CL 96.0 mmol/L (98-107); CREATININE 1.0 mg/dL (0.6-1.0); EST CRCL DRUG DOSING (CG) 39.63 mL/min; GLUCOSE RANDOM 125.0 mg/dL (74-106); POTASSIUM,K 3.7 mmol/L (3.5-5.1); PROTEIN TOTAL,TP 7.8 g/dL (6.4-8.2); SODIUM,NA 138.0 mmol/L (136-145)
[2025-06-29 12:47] LABS: ESTIMATED GFR 59.0 mL/min (>60)
[2025-06-29 12:51] LABS: LACTIC ACID 2.0 mmol/L (0.4-2.0)
[2025-06-29] MEDS: Ketorolac 30 MG/ML SDV IVPUSH ONE (16:30)
[2025-06-29 17:06] VITALS: BP 122/60; PULSE 79
== END 2025-06-29 17:24 | disposition home or self-care (01) ==
LOC: MW.ED 10:44
DX: J18.9 Pneumonia, unspecified organism (principal); I10 Essential (primary) hypertension; Z88.5 Allergy status to narcotic agent; Z91.041 Radiographic dye allergy status; Z79.899 Other long term (current) drug therapy; Z79.890 Hormone replacement therapy; Z79.84 Long term (current) use of oral hypoglycemic drugs; E78.00 Pure hypercholesterolemia, unspecified
CPT/HCPCS: 36415; 71045; 74176; 80053; 81001; 83605; 83690; 84484; 85025; 87040; 93005; 96361; 96374; 96375; 99284; A9270; J0696; J1885; J2405; J7030; Q0144; 93010